=== PATIENT | female | born 1935 | race Caucasian/White ===

== ENCOUNTER 2017-08-02 12:32 | Outpatient (CLI) | END 2017-08-02 12:33 | disposition home or self-care (01) | LOC: RHC-LAB 12:32 | PROVIDERS: ATTEND Otolaryngology | DX: H92.11 Otorrhea, right ear (principal) | CPT/HCPCS: 87070 ==

== ENCOUNTER 2018-01-05 07:10 | Outpatient (CLI) | payer OTHER ==
--- NOTE | 2018-01-05 11:14 | US ---
EXAM: Ultrasound abdomen limited. HISTORY: Elevated liver enzymes. COMPARISON: None available. TECHNIQUE: Abdominal, real time with image documentation: limited (eg, single organ, quadrant, foll ow-up) FINDINGS: The liver demonstrates coarsening of the echotexture pattern with suggestion of slight nod ular surface contour. No focal lesion identified. There is no intrahepatic biliary dilatation. Por monse venous flow is normal in direction. The gallbladder is absent. Common duct measures approximate ly 1.6 cm. Visualized portions of the pancreas are unremarkable. IMPRESSION: 1. Status post cholecystectomy with biliary dilatation. Consider MRCP if there is concern for bilia ry obstruction. 2. Question cirrhosis.
== END 2018-01-05 07:11 | disposition home or self-care (01) ==
LOC: RAD 07:10
PROVIDERS: ATTEND Internal Medicine
DX: R94.5 Abnormal results of liver function studies (principal)

== ENCOUNTER 2018-05-22 18:47 | Outpatient (CLI) | payer OTHER | END 2018-05-22 18:48 | disposition home or self-care (01) | LOC: NONPT 18:47 | PROVIDERS: ATTEND Internal Medicine | DX: E11.65 Type 2 diabetes mellitus with hyperglycemia (principal) | CPT/HCPCS: 80048 ==

== ENCOUNTER 2018-05-30 18:02 | Inpatient (IN) | payer OTHER ==
--- NOTE | 2018-05-30 18:45 | ED.PDOC ---
General Stated Complaint: Reduced /Altered mental status/ Increased difficulty with ambulation. Hx parkinsons disease. Normally up and ambulates with assistance of a walker/now increased diffiulty. states has been drinking adequately. PMHX UTI Time Seen by Physician: 18:15 Mode of Arrival: Ambulance Information Source: Patient, Family, EMT Exam Limitations: No limitations System Inflammatory Response Syndrome: Not Applicable <CHAMP POWELL - Last Filed: 05/30/18 19:14> <CHAMP SALVADOR - Last Filed: 05/30/18 20:45> ED Provider: Dr. CHAMP SALVADOR MD Chief Complaint: Altered Mental Status Primary Care Provider: ABBIE GARCIA Sepsis Protocol: For patient's 13 years and over: Temp is 96.8 and below OR 101 and greater Pulse >90 BPM Resp >20/minute Acutely Altered Mental Status Are patient's symptoms suggestive of a new infection, such as: -Pneumonia -Skin, Soft Tissue -Endocarditis -UTI -Bone, Joint Infection -Implantable Device -Acute Abdominal Infection -Wound Infection -Meningitis -Blood Stream Catheter Infection -Unknown Neurological Complaint Exam - Weakness Complaint/Exam Onset: Gradual Symptoms Are: Still present Timing: Intermittent Episodes Lasting: Minutes Initial Severity: Mild Current Severity: Moderate Character: Reports: Weak Aggravating: Reports: Exertion Alleviating: Reports: Rest Associated Signs and Symptoms: Reports: Unsteady gait. Denies: Nausea, Vomiting , Diaphoresis, Tinnitus, Chest pain, Short of air, Palpitations, GI blood loss, Visual changes, Decreased oral intake, Change in medication, Change in diet, OTC meds, Loss of balance Related History: Similar episode Cardiac Risk Factors: Reports: Hypertension, Diabetes, Elevated lipids CVA Risk Factors: Reports: Diabetes, Hypertension Related Surgical History: Reports: None JVD Present: No Carotid Bruit Present: No Nystagmus Present: No Gag Reflex Present: Yes Meningeal Signs Positive: No Focal Weakness: Present: None Focal Sensory Loss: Present: None Gait: Unsteady (at home), Unable [id number]: Normal Findings Babinski Sign: Negative Right, Negative Left Differential Diagnoses: Other (UTI, Parkinsons) <CHAMP POWELL - Last Filed: 05/30/18 19:14> Review of Systems - Review Of Systems Constitutional: Reports: Weakness Eyes: Reports: No symptoms Ears, Nose, Mouth, Throat: Reports: No symptoms Respiratory: Reports: No symptoms Cardiac: Reports: No symptoms GI: Reports: No symptoms : Reports: Incontinence Musculoskeletal: Reports: No symptoms Skin: Reports: No symptoms Neurological: Reports: Cognitive dysfunction (mild) Endocrine: Reports: No symptoms Hematologic/Lymphatic: Reports: No symptoms All Other Systems: Reviewed and Negative <CHAMP POWELL - Last Filed: 05/30/18 19:14> - Review Of Systems Constitutional: Reports: No symptoms Eyes: Reports: No symptoms Respiratory: Reports: No symptoms Cardiac: Reports: Irregular heart rate GI: Reports: No symptoms Musculoskeletal: Reports: No symptoms Skin: Reports: No symptoms <CHAMP SALVADOR - Last Filed: 05/30/18 20:45> Past Medical History - Past Medical History Endocrine: Reports: DM 2, Hypothyroid, Dyslipidemia Cardiovascular: Reports: Hypertension Gastrointestinal: Reports: GERD Genitourinary: Reports: UTI, Urosepsis Neuro/Psych: Reports: TIA, Anxiety, Depression, Dementia, Parkinson's Musculoskeletal: Reports: Arthritis, Joint Pain Cancer: Reports: None Last Menstrual Period: unknown - Social History Smoking Status: Never smoker Hx Substance Use: No Alcohol Screening: None <CHAMP POWELL - Last Filed: 05/30/18 19:14> Physical Exam - Physical Exam Appearance: Ill-appearing, Obese Ill-appearing: Mild Pain Distress: None Eyes: JIE, EOMI, Conjunctiva clear ENT: Ears normal, Nose normal, Oropharynx normal Neck: Supple Respiratory: Airway patent, Breath sounds clear, Breath sounds equal, Respirations nonlabored Cardiovascular: RRR, Pulses normal, No rub, No murmur GI/: Soft, Nontender, No masses, Bowel sounds normal, No Organomegaly Musculoskeletal: Normal strength, ROM intact, No edema, No calf tenderness Skin: Warm Neurological: Sensation intact, Motor intact, Reflexes intact, Cranial nerves intact, Alert, Oriented Psychiatric: Affect appropriate, Mood appropriate <CHAMP POWELL - Last Filed: 05/30/18 19:14> Physician Notification - Case Discussed Physician Notified: Dr Salvador- physician Time of Notification: 19:05 (accepts patient) <CHAMP POWELL - Last Filed: 05/30/18 19:14> Course - Course Hematology/Chemistry: 05/30/18 19:00 <CHAMP POWELL - Last Filed: 05/30/18 19:14> - Course Hematology/Chemistry: 05/30/18 19:00 05/30/18 19:00 <CHAMP SALVADOR - Last Filed: 05/30/18 20:45> - Course Orders, Labs, Meds: Lab Review 05/30/18 05/30/18 05/30/18 18:50 18:50 19:00 WBC 5.27 RBC 4.28 Hgb 12.9 Hct 38.4 MCV 89.7 MCH 30.1 MCHC 33.6 RDW Coeff of Woody 12.0 Plt Count 195 Immature Gran % (Auto) 0.2 Neut % (Auto) 82.9 Lymph % (Auto) 8.7 L [place] % (Auto) 7.6 Eos % (Auto) 0.2 Baso % (Auto) 0.4 Immature Gran # (Auto) 0.0 Neut # (Auto) 4.4 Lymph # (Auto) 0.5 L [place] # (Auto) 0.4 Eos # (Auto) 0.0 Baso # (Auto) 0.0 Sodium Potassium Chloride Carbon Dioxide Anion Gap BUN Creatinine Estimated GFR (MDRD) BUN/Creatinine Ratio Glucose Lactic Acid Calcium Magnesium Total Bilirubin AST ALT Alkaline Phosphatase Troponin I < 0.012 Total Protein Albumin Globulin Albumin/Globulin Ratio Procalcitonin < 0.05 Urine Color Urine Clarity Urine pH Ur Specific [place] Urine Protein Urine Glucose (UA) Urine Ketones Urine Blood Urine Nitrite Urine Bilirubin Urine Urobilinogen Ur Leukocyte Esterase Urine Microscopic WBC Ur Squamous Epith Cells Ur Transition Epith Cell Urine Bacteria 05/30/18 05/30/18 05/30/18 19:00 19:00 19:30 WBC RBC Hgb Hct MCV MCH MCHC RDW Coeff of Woody Plt Count Immature Gran % (Auto) Neut % (Auto) Lymph % (Auto) [place] % (Auto) Eos % (Auto) Baso % (Auto) Immature Gran # (Auto) Neut # (Auto) Lymph # (Auto) [place] # (Auto) Eos # (Auto) Baso # (Auto) Sodium 136.8 Potassium 4.33 Chloride 92.3 L Carbon Dioxide 26.1 Anion Gap 22.73 BUN 16.9 Creatinine 0.61 Estimated GFR (MDRD) 94.00 BUN/Creatinine Ratio 27.70 Glucose 101.7 Lactic Acid 2.55 H Calcium 8.37 L Magnesium 1.19 L Total Bilirubin 1.42 H AST 11.1 L ALT 7.5 Alkaline Phosphatase 59.0 Troponin I Total Protein 6.99 Albumin 4.17 Globulin 2.82 Albumin/Globulin Ratio 1.47 Procalcitonin Urine Color Yellow Urine Clarity Clear Urine pH 5.5 Ur Specific [place] 1.025 Urine Protein 2+ Urine Glucose (UA) Negative Urine Ketones 2+ Urine Blood Negative Urine Nitrite Positive Urine Bilirubin Negative Urine Urobilinogen 1.0 Ur Leukocyte Esterase Negative Urine Microscopic WBC 0-2 Ur Squamous Epith Cells 0-2 Ur Transition Epith Cell 2-5 Urine Bacteria 3+ Orders Category Date Time Status EKG-(ED ONLY) Stat CARDIO 05/30/18 18:10 Completed Straight [ED CATHETER INSERTION AND CARE] .ONCE EMERGENCY 05/30/18 19:23 Active BLOOD CULTURE (ED ONLY) Stat LAB 05/30/18 19:00 Received CBC W/ AUTO DIFF Stat LAB 05/30/18 19:00 Completed CMP [COMPREHENSIVE METABOLIC PANEL] Stat LAB 05/30/18 19:00 Completed LACTIC ACID Stat LAB 05/30/18 19:00 Completed MAGNESIUM Stat LAB 05/30/18 19:00 Completed PROCALCITONIN Stat LAB 05/30/18 18:50 Completed TROPONIN I Stat LAB 05/30/18 18:50 Completed UA [URINALYSIS C & S IF INDICATED] Stat LAB 05/30/18 19:30 Completed URINE CULTURE Stat LAB 05/30/18 19:56 Received Ceftriaxone Sodium [Rocephin] MEDS 05/30/18 20:21 Discontinued 1 gm IM ONCE STA Lidocaine HCl [Uro-Jet] MEDS 05/30/18 19:23 Discontinued 10 ml [id number] ONCE STA Lidocaine HCl/Pf [Lidocaine HCl 1% Sdv] MEDS 05/30/18 20:21 Discontinued 2.1 ml IM ONCE STA CHEST, 1V AP ONLY Stat RADS 05/30/18 18:[address] HEAD W/O CONTRAST Stat RADS 05/30/18 18:43 Completed Medications Discontinued Medications Generic Name Dose Route Start Last Admin Trade Name Freq PRN Reason Stop Dose Admin Ceftriaxone Sodium 1 gm 05/30/18 20:21 Rocephin IM 05/30/18 20:22 ONCE STA Lidocaine HCl 10 ml 05/30/18 19:23 05/30/18 19:44 Uro-Jet MUCOUSMEMB 05/30/18 19:24 10 ml ONCE STA Administration Lidocaine HCl 2.1 ml 05/30/18 20:21 Lidocaine Hcl 1% Sdv IM 05/30/18 20:22 ONCE STA Vital Signs: Temp Pulse Resp BP Pulse Ox 05/30/18 18:03 97.7 F 68 18 129/56 L 99 Departure <CHAMP POWELL - Last Filed: 05/30/18 19:14> - Departure Time of Disposition: 20:45 Disposition Discussed With: Patient, Family (admitted) <CHAMP SALVADOR - Last Filed: 05/30/18 20:45> - Departure Disposition: HOME SELF-CARE Discharge Problem: Altered mental status, Parkinsons disease, Urinary tract infection after immobility Instructions: Urinary Tract Infection in Women (ED) Allergies/Adverse Reactions: Allergies codeine Allergy (Unverified 12/21/16 09:23) naproxen [From Naprosyn] Allergy (Unverified 12/21/16 09:23) Penicillins Adverse Reaction (Verified 05/30/18 18:15) Home Medications: Ambulatory Orders Atorvastatin Calcium 40 mg PO BEDTIME 11/04/15 Calcium Carb/Vitamin D3/Vit K1 [Calcium + Vit D & K Chew Tab] 1 each PO DAILY Furosemide 20 mg PO DAILY 11/04/15 Levothyroxine Sodium 112 mcg PO DAILY 11/04/15 Metformin HCl 500 mg PO QID 11/04/15 Aspirin [Aspir 81] 81 mg PO DAILY tab-cap 01/11/17 Carbidopa/Levodopa [Carbidopa-Levo 25-100 Mg Odt] 2 each PO TID 04/06/17 Benazepril HCl 20 mg PO BEDTIME 05/30/18 Benazepril HCl [Lotensin] 40 mg PO DAILY 05/30/18 Buspirone HCl 10 mg PO TID 05/30/18 Clonidine HCl [Catapres] 0.1 mg PO BID PRN 05/30/18 Donepezil HCl [Aricept] 10 mg PO BEDTIME 05/30/18 Escitalopram Oxalate [Lexapro] 10 mg PO DAILY 05/30/18 Famotidine [Pepcid] 20 mg PO BEDTIME 05/30/18 Hydrocodone Bit/Acetaminophen [[place] 5-325] 1 each PO Q6HR PRN 05/30/18 Potassium Chloride [K-Dur] 20 meq PO DAILY 05/30/18 Risperidone [Risperdal] 0.25 mg PO BID 05/30/18
[2018-05-30] MEDS ORDERED: URO-JET MUCOUSMEMB STA (19:23)
--- NOTE | 2018-05-30 19:36 | CT ---
EXAM: CT brain without contrast HISTORY: Altered mental status TECHNIQUE: CT of the brain without intravenous contrast FINDINGS: There is no acute hemorrhage midline shift or mass effect. No hydrocephalus or abnormal e xtra-axial fluid collection. Generalized involutional atrophy, moderate. Chronic microvascular rahman ges of the white matter tracts, severe. No acute large vessel territorial infarct is seen. The bony cranium appears normal. The visualized paranasal sinuses are clear. Soft tissues without significan t abnormality. IMPRESSION: 1. Chronic changes as described. No acute intracranial abnormality is seen.
--- NOTE | 2018-05-30 19:42 | DI ---
EXAM: CHEST FRONTAL VIEW HISTORY: Decreased mental functioning. COMPARISON: None FINDINGS: Prominent heart size. Atherosclerotic disease. Minimal blunting of the left costophrenic angle probably represents a tiny pleural effusion. Chronic lung changes with no obvious consolidate d pneumonia or active congestive heart failure/fluid overload. There is no pneumothorax IMPRESSION: 1. Questionable tiny left pleural effusion. Otherwise lungs are clear.
[2018-05-30] MEDS ORDERED: ROCEPHIN IM STA (20:21)
[2018-05-30] MEDS ORDERED: LIDOCAINE HCL 1% SDV IM STA (20:21)
[2018-05-30] MEDS ORDERED: ROCEPHIN 1 GM in SODIUM CHLORIDE 50 ML IV STA (20:33)
[2018-05-30] MEDS ORDERED: ROCEPHIN ONE (20:37)
[2018-05-30] MEDS ORDERED: SODIUM CHLORIDE 1,000 ML IV STA (20:57)
[2018-05-30] MEDS ORDERED: ATROPINE SULFATE PFS IVP PRN (20:59)
[2018-05-30] MEDS ORDERED: NITROSTAT SL PRN (20:59)
[2018-05-30] MEDS ORDERED: TYLENOL PO PRN (20:59)
[2018-05-30 22:17] VITALS: BMI 23.5
[2018-05-30] MEDS ORDERED: NORCO 5-325 PO PRN (23:20)
[2018-05-30] MEDS ORDERED: NON-FORMULARY MEDICATION (Atorvastatin Calcium [Atorvastatin Calcium] 40 MG) PO SCH (23:22)
[2018-05-30] MEDS ORDERED: NON-FORMULARY MEDICATION (Benazepril Hcl [Benazepril Hcl] 20 MG) PO SCH (23:22)
[2018-05-30] MEDS ORDERED: RISPERDAL PO SCH (23:30)
[2018-05-30] MEDS ORDERED: LIPITOR ONE (23:32)
[2018-05-30] MEDS ORDERED: LOTENSIN ONE (23:33)
[2018-05-30] MEDS: PEPCID PO SCH (23:36)
[2018-05-30] MEDS: BUSPAR PO SCH (23:37)
[2018-05-30] MEDS: ARICEPT PO SCH (23:37)
[2018-05-30] MEDS: CATAPRES PO PRN (23:37)
[2018-05-31] MEDS ORDERED: SODIUM CHLORIDE 1,000 ML IV SCH (05:30)
[2018-05-31] MEDS ORDERED: SYNTHROID ONE (05:53)
[2018-05-31] MEDS: LASIX TAB PO SCH (05:56)
[2018-05-31] MEDS: CATAPRES PO PRN (05:56)
[2018-05-31] MEDS ORDERED: LEVOTHYROXINE SODIUM 112 MCG PO SCH (06:30)
--- NOTE | 2018-05-31 08:27 | PCM.PROG ---
Attending Provider: ATTENDING PROVIDER: Dr. CAROL CARBONE DATE OF SERVICE: 05/31/18 SUBJECTIVE: This 83 year old WHITE/ F was hospitalized 05/30/18 with syncope type of episode, dehydration and evidence of UTI by abnormal U/A. The patient is being treated with Rocephin. We will continue IV fluids. No evidence of fluid overload. The patient's systolic blood pressure is 182. REVIEW OF SYSTEMS: CONSTITUTIONAL: No night sweats. No fatigue, malaise, lethargy. No fever or chills. HEENT: Eyes: No visual changes. No eye pain. No eye discharge. ENT: No runny nose. No epistaxis. No sinus pain. No odynophagia. No congestion. RESPIRATORY: No cough, no congestion. No hemoptysis. No shortness of breath. CARDIOVASCULAR: No angina symptoms. No CHF symptoms. No atypical chest pain for CAD. No palpitations. No orthopnea.. GASTROINTESTINAL: No abdominal pain. No nausea or vomiting. No diarrhea or constipation. No hematemesis. No hematochezia. GENITOURINARY: No urgency. No frequency. No dysuria. No hematuria. No obstructive symptoms. No discharge. No pain. No significant abnormal bleeding. MUSCULOSKELETAL: No musculoskeletal pain; no joint swelling. NEUROLOGICAL: Awake, alert, oriented to time, place and person. No headache. No neck pain. No syncope. No seizures. No dizziness. PSYCHIATRIC: Not anxious. No depression. No suicidal thoughts. No homicidal thoughts. SKIN: No rash. No lesions. No wounds. ENDOCRINE: No unexplained weight loss. No weight gain. HEMATOLOGIC/LYMPHATIC: No anemia. No purpura. No petechiae. No prolonged or excessive bleeding. No palpable lymph nodes. PHYSICAL EXAMINATION: GENERAL: The patient is awake, alert and oriented, lying in bed in no distress. VITAL SIGNS: Temperature 97.8 F, Pulse 62, Respiratory Rate 16, BP 156/70, Pulse Ox 100% HEENT: Head normocephalic, atraumatic. Eyes: Extraocular muscles are intact. Pupils are equal, round and reactive to light and accommodation. Ears: No lesions. Nose appeared normal. Throat: No exudate or erythema. NECK: Supple. No JVD, no carotid bruit. No lymphadenopathy or thyromegaly. LUNGS: Clear to auscultation. Percussion note normal. Chest symmetrical. HEART: S1, S2, no S3. No murmurs. No cyanosis or clubbing. No ascites. Pulses: Dorsalis pedis and posterior tibial pulses +1 to +2 both sides. ABDOMEN: Soft. Non-tender. Bowel sounds active. No CVA tenderness. No mass felt. EXTREMITIES: No edema. Full range of motion of all extremities, equal. NEUROLOGIC: No focal deficit. Cranial nerves II through XII are grossly intact. No headache, no double vision or headache. SKIN: Warm and dry. Intact. Turgor-normal. LYMPHATIC: No palpable lymph nodes/no lymphedema. MUSCULOSKELETAL: Normal joints with no swelling. Muscle tone is normal. LAB REVIEW: 05/31/18 03:00 05/31/18 03:00 05/31/18 03:00: WBC 4.67, RBC 3.72 L, Hgb 11.1 L, Hct 33.1 L, MCV 89.0, MCH 29.8 , MCHC 33.5, RDW Coeff of Woody 12.1, Plt Count 173, Immature Gran % (Auto) 0.2, Neut % (Auto) 74.1, Lymph % (Auto) 14.8, [place] % (Auto) 9.9, Eos % (Auto) 0.4, Baso % (Auto) 0.6, Immature Gran # (Auto) 0.0, Neut # (Auto) 3.5, Lymph # (Auto ) 0.7, [place] # (Auto) 0.5, Eos # (Auto) 0.0, Baso # (Auto) 0.0 05/31/18 03:00: Sodium 136.1, Potassium 4.02, Chloride 95.7 L, Carbon Dioxide 28.6, Anion Gap 15.82, BUN 19.2 H, Creatinine 0.62, Estimated GFR (MDRD) 92.00, BUN/Creatinine Ratio 30.96, Glucose 100.0, Calcium 8.00 L, Total Bilirubin 0.96 , AST 12.3 L, ALT 4.9, Alkaline Phosphatase 45.8 L, Total Creatine Kinase < 20.0 L, Troponin I < 0.012, Total Protein 6.09 L, Albumin 3.28 L, Globulin 2.81 , Albumin/Globulin Ratio 1.16 05/30/18 19:30: Urine Color Yellow, Urine Clarity Clear, Urine pH 5.5, Ur Specific [place] 1.025, Urine Protein 2+, Urine Glucose (UA) Negative, Urine Ketones 2+, Urine Blood Negative, Urine Nitrite Positive, Urine Bilirubin Negative, Urine Urobilinogen 1.0, Ur Leukocyte Esterase Negative, Urine Microscopic WBC 0-2, Ur Squamous Epith Cells 0-2, Ur Transition Epith Cell 2-5, Urine Bacteria 3+ 05/30/18 19:00: Lactic Acid 2.55 H 05/30/18 19:00: Sodium 136.8, Potassium 4.33, Chloride 92.3 L, Carbon Dioxide 26.1, Anion Gap 22.73, BUN 16.9, Creatinine 0.61, Estimated GFR (MDRD) 94.00, BUN/Creatinine Ratio 27.70, Glucose 101.7, Calcium 8.37 L, Magnesium 1.19 L, Total Bilirubin 1.42 H, AST 11.1 L, ALT 7.5, Alkaline Phosphatase 59.0, Total Protein 6.99, Albumin 4.17, Globulin 2.82, Albumin/Globulin Ratio 1.47 05/30/18 19:00: WBC 5.27, RBC 4.28, Hgb 12.9, Hct 38.4, MCV 89.7, MCH 30.1, MCHC 33.6, RDW Coeff of Woody 12.0, Plt Count 195, Immature Gran % (Auto) 0.2, Neut % (Auto) 82.9, Lymph % (Auto) 8.7 L, [place] % (Auto) 7.6, Eos % (Auto) 0.2, Baso % (Auto) 0.4, Immature Gran # (Auto) 0.0, Neut # (Auto) 4.4, Lymph # (Auto ) 0.5 L, [place] # (Auto) 0.4, Eos # (Auto) 0.0, Baso # (Auto) 0.0 05/30/18 18:50: Troponin I < 0.012 05/30/18 18:50: Procalcitonin < 0.05 ASSESSMENT: Please see below. 1. UTI being treated with Rocephin, no fever or chills 2. Near syncope episode by history, will monitor telemetry and get Carotid scan 3. Bilateral Endarterectomy PLAN: 1. Discontinue Benazepril 2. Losartan 50mg twice a day 3. Norvasc 5mg at night 4. Continue Clonidine 5. Continue rest of medications. 6. T4 TSH 7. Lipid profile 8. Parkinson's dementia, find out her neurologist and continue same treatment. 9. Continue IV fluids. Plan and coordination of the patient's care discussed in the presence of Crew Team Member and nurse. SCRIBED BY: SUGEY RANDALL Rehab Manager scribed while in presence of service performed by Dr. CAROL CARBONE on 05/31/18 ([id number])
[2018-05-31] MEDS ORDERED: NON-FORMULARY MEDICATION (Potassium Chloride [K-Dur] 20 MEQ) PO SCH (09:00)
[2018-05-31] MEDS ORDERED: NON-FORMULARY MEDICATION (Benazepril Hcl [Lotensin] 40 MG) PO SCH (09:00)
[2018-05-31] MEDS ORDERED: LEVODOPA PO SCH (09:00)
[2018-05-31] MEDS ORDERED: PLAVIX PO SCH (09:00)
[2018-05-31] MEDS ORDERED: CARBIDOPA PO SCH (09:00)
[2018-05-31] MEDS: ROCEPHIN 1 GM in SODIUM CHLORIDE 50 ML IV SCH (09:37)
[2018-05-31] MEDS: LEXAPRO PO SCH (09:38)
[2018-05-31] MEDS: ASPIRIN EC PO SCH (09:38)
[2018-05-31] MEDS: K-DUR PO SCH (09:38)
[2018-05-31] MEDS: GLUCOPHAGE PO SCH ×2 (09:39→17:06)
[2018-05-31] MEDS: CALCIUM 500 + VIT D 200 MG TABLET PO SCH (09:39)
[2018-05-31] MEDS: COZAAR PO SCH ×2 (09:41→21:17)
[2018-05-31] MEDS: BUSPAR PO SCH ×3 (09:41→21:17)
[2018-05-31] MEDS: SINEMET 25-100 PO SCH ×3 (09:42→21:16)
--- NOTE | 2018-05-31 11:18 | RS.PTINEVL ---
Subjective - Patient information Date of Evaluation: 05/31/18 Date of Arrival on Unit: 05/30/18 Admitted From:: Home Diagnosis: syncope, UTI, dehydration Usual Living Arrangement: With Spouse Living Arrangement Comments: lives with spouse, dtrs are supportive. Home Environment: House, Stairs (few) Medical History: Hypertension, Dementia, Diabetes, Arthritis Medical History Comments:: CAD, parkinson's disease, GERD, depression, anxiety Surgical History: Knee Replacement (Bilateral), Cholecystectomy, Hysterectomy Surgical History Comments:: femur fx s/p repair, Medications: see chart Subjective Information/ Patient Comments:: pt states that she can't do much on her own. - Level of function Prior to this admission, the patient could do the following:: Partially Dependent Ambulation Abilities prior to this admission: Family assists with ADL's Current Level of Function: Partially Dependent Current Equipment Used at Home: rolling walker, shower chair, wheelchair, canes , BSC Interventions - Objective Patient Orientation: Person Current Interventions: IV's, Oxygen, Telemetry Observation: pt very [place], has 1 hearing aide. Range of Motion - ROM Right Upper Extremity AROM: WFL's Left Upper Extremity AROM: WFL's Right Lower Extremity AROM: WFL's Left Lower Extremity AROM: WFL's Muscle Strength - Muscle Strength Right Upper Extremity Strength: Mild Weakness (grossly 3/5) Left Upper Extremity Strength: Mild Weakness (grossly 3/5) Right Lower Extremity Strength: Mild Weakness (hip flex 3+/5, knee flex/ext 3+/5 , ankle DF/PF 4-/5) Left Lower Extremity Strength: Mild Weakness (hip flex 3+/5, knee flex/ext 3+/5 , ankle DF/PF 4-/5) Sensation - Sensation Right Upper Extremity Sensation: Intact/Normal Left Upper Extremity Sensation: Intact/Normal Right Lower Extremity Sensation: Intact/Normal Left Lower Extremity Sensation: Intact/Normal Palpation Palpation Findings: None/Normal Balance - Sitting Balance and Reactions Static Sitting Balance: Fair Dynamic Sitting Balance: Poor Sitting Equilibrium Reactions: Delayed Left, Delayed Right Sitting Protective Reactions: Delayed Left, Delayed Right - Standing Balance and Reactions Static Standing Balance: Poor Dynamic Standing Balance: Poor Standing Equilibrium Reactions: Delayed Left, Delayed Right Standing Protective Reactions: Delayed Left, Delayed Right Functional Mobility - Bed Mobility Rolling R/L: Mod Assist Supine to Sit: Mod Assist - Transfers Sit to Stand: Min Assist, 2 person assist Stand to Sit: Min Assist, 2 person assist - Safety Awareness Safety Awareness: Poor GUILLERMO INDEX SCORE: n/a Ambulation - Ambulation Assistive Device Used: Rolling Walker Orthotic/Prosthetic Device: No Distance: 10ft Assistance needed with Ambulation: Min Assist, 2 person assist Gait Deviations: Wide Based gait, Forward posture, Short stride, Deviates from path Treatment time - Time with patient Length of Evaluation: 24 Total treatment time: 26 Patient Education - Education Patient Education: Home Exercise Program, Education of Plan of Care Teaching Methods: Discussion, Demonstration Comments: discussion regarding POC as well as safety with transfers and gait. Assessment - Assessment Problem List:: Decreased level of function, Requires training/education, Decreased safety/Risk of falls, Weakness, Cognitive status limits abilities Rehab Potential: Good Further Therapy Indicated?: Yes Candidate for Swing Bed for Therapy Services?: Feel pt may not be a candidate for swing bed due to cognitive deficits. Evaluation Complexity: HISTORY: Medium (dementia, parkinsons, OA, dementia, age) , EXAM OF BODY SYSTEMS: Medium (strength, balance, gait, transfers, cognitive deficits), CLINICAL PRESENTATION: Medium (evolving), CLINICAL DECISION MAKING: Medium Short Term Goals GOAL #1: pt demonstrate rolling and bridging with min x 1 Goal to be met by: 06/02/18 GOAL #2: pt transfer sup to/from sit min x 1 Goal to be met by: 06/02/18 GOAL #3: pt transfer sit to/from stand min x 1 Goal to be met by: 06/02/18 GOAL #4: pt amb with rwx 50ft with min x 1. Goal to be met by: 06/02/18 Brick Tosser Goals GOAL #1: pt transfer sup to/from sit to/from stand CGa Goal to be met by: 06/05/18 GOAL #2: pt amb with rwx functional household distances with CGA Goal to be met by: 06/05/18 GOAL #3: pt demonstrate improved dyn stand balance fair. Goal to be met by: 06/05/18 Plan Plan of Care: Therapeutic EX, Therapeutic Activity Other:: gait training Frequency of Treatment: 1-2 X day, as tolerated Duration of Treatment: 5-6 days Anticipated Discharge Destination: Home (home vs LTC) Treatment Diagnosis (ICD 10 Codes): R26.2 difficulty walking. R 26.81 balance impaired. M 62.81 muscle weakness Has the Physician been added for Co-signature?: Yes
[2018-05-31] MEDS: RISPERDAL PO SCH ×2 (11:56→21:16)
[2018-05-31] MEDS: SODIUM CHLORIDE 1,000 ML IV SCH (13:40)
--- NOTE | 2018-05-31 13:52 | US ---
EXAM: Bilateral carotid artery Doppler History: Syncopal episodes, visual impairment and headaches. Technique: Multiple sonographic images through the bilateral internal carotid arteries were obtained . Color duplex Doppler was used to interrogate vascular flow. Findings: The right ICA peak systolic velocity is within normal limits measuring 90 cm/sec. The right ICA/cca PSV ratio is normal at 1.7. The right vertebral artery is patent and demonstrates antegrade flow. G ray scale images demonstrate mild to moderate plaque buildup within the right internal carotid artery . The left ICA peak systolic velocity is within normal limits measuring 81 cm/sec. The left ICA/cca PS V ratio is normal at 1.3. The left vertebral artery is patent and demonstrates antegrade flow. Mari scale images demonstrate mild to moderate plaque buildup within the left internal carotid artery. Impression: No significant hemodynamic stenosis of the bilateral internal carotid arteries
--- NOTE | 2018-05-31 14:21 | RS.OTINEVL ---
Subjective - Patient information Date of Evaluation: 05/31/18 Date of Arrival on Unit: 05/30/18 Usual Living Arrangement: With Spouse Living Arrangement Comments: Reported she lives at [facility]. Medical History: Hypertension, Dementia, Vascular Disease Medical History Comments:: Pt has dementia, Parkinson's Disease, Carotid surgery , endocrine disorder, retinal surgery, cardiac disorders, hysterectomy, femur fracture, UTI, hypercholesterolemia, vascular surgery, right inner ear rebuilt, cataract removed Surgical History: Hysterectomy Surgical History Comments:: hysterectomy, vascular surgery, retinal surgery, B TKA, R inner ear rebuilt, Cholecystectomy, caratorid surgery. cataracts removed Subjective Information/ Patient Comments:: "Not very well." When asked if she could feed herself, she reported that her usually feeds her. - Level of function Prior to this admission, the patient could do the following:: Partially Dependent Ambulation Abilities prior to this admission: Pt is able to ambulate with a rolling walker. Pt is Dougie to complete sit to stand. Pt has help with self feeding. Pt requires assistance with all ADLS due to delay in processing and BUE weakness. Current Level of Function: Partially Dependent Current Equipment Used at Home: rolling walker, shower chair, wheelchair, canes , BSC Pain Assessment - Pain Pain Score: 0 Interventions - Objective Patient Orientation: Person, Situation Current Interventions: IV's, Oxygen, Telemetry, Paige Catheter Observation: Pt is weak and requires extra time with processing. Pt tries very hard to complete her walking with a RW and walks in very short steps. Interventions - ROM Right Upper Extremity AROM: Slight limitation Left Upper Extremity AROM: Slight limitation - Strength Right Upper Extremity Strength: Mild Weakness Left Upper Extremity Strength: Mild Weakness - Sensation Right Upper Extremity Sensation: Intact/Normal Left Upper Extremity Sensation: Intact/Normal Balance - Sitting Balance Static Sitting Balance: Fair Dynamic Sitting Balance: Fair - Standing Balance Static Standing Balance: Poor Dynamic Standing Balance: Poor ADL Skills - Self Feeding Self Feeding: Min Assist - Grooming Grooming: Min Assist - Bathing Bathing UE: Min Assist Bathing LE: Max Assist - Dressing Dressing UE: Min Assist Dressing LE: Max Assist - Toilet Management Toileting Management: Max Assist Functional Mobility - Bed Mobility Rolling R/L: CGA Scooting: Min Assist Supine to Sit: Min Assist Sit to Supine: Min Assist - Transfers Sit to Stand: Min Assist Stand to Sit: Min Assist Stand Pivot Transfers: Min Assist - Safety Awareness Safety Awareness: Fair GUILLERMO INDEX SCORE: . Additional Treatment Performed - Time with patient Length of Evaluation: 25 Total treatment time: 32 Activities Do you enjoy playing games?: No Would you be interested in leaving your room for activities?: No Would you enjoy group activities?: Yes Do you have difficulty with your vision?: Yes Patient Interests:: Watching Television, Visiting/Socializing Patient Education Patient Education: Education of diagnosis, Home Exercise Program, Home Safety, Education of Plan of Care Teaching Recipient: Patient Teaching Methods: Discussion Assessment Problem List:: Decreased level of function, Requires training/education, Decreased safety/Risk of falls, Weakness Rehab Potential: Good Further Therapy Indicated?: Yes Evaluation Complexity: HISTORY: Medium, EXAM OF BODY SYSTEMS: Medium, CLINICAL DECISION MAKING: Medium Short Term Goals - Goals GOAL 1: Pt to increase (I) of self cares to CGA. Goal to be met by: 06/06/18 GOAL 2: Pt to increase toilet management to Min A. Goal to be met by: 06/06/18 GOAL 3: Pt to increase I of self feeding to CGA. Goal to be met by: 06/06/18 Medical Office Assistant Goals GOAL 1: Pt to increase (I) of self cares to Sup. Goal to be met by: 06/09/18 GOAL 2: Pt to increase toilet management to CGA. Goal to be met by: 06/09/18 GOAL 3: Pt to increase I of self feeding to Sup. Goal to be met by: 06/09/18 Plan Plan of Care: Therapeutic EX, Neuromuscular Re-Educ, Therapeutic Activity, Self- Care/Home Management Frequency of Treatment: 1-2 X day, as tolerated Duration of Treatment: 1 Week Anticipated Discharge Destination: [facility] Treatment Diagnosis (ICD 10 Codes): M62.81 Muscle weakness, Z74.1 Need for assistance with personal care. Has the Physician been added for Co-signature?: Yes
[2018-05-31] MEDS ORDERED: LOTENSIN PO SCH (21:00)
[2018-05-31] MEDS: LIPITOR PO SCH (21:16)
[2018-05-31] MEDS: ARICEPT PO SCH (21:16)
[2018-05-31] MEDS: PEPCID PO SCH (21:17)
[2018-05-31] MEDS: NORVASC PO SCH (21:17)
[2018-06-01] MEDS: SODIUM CHLORIDE 1,000 ML IV SCH ×2 (02:57→16:45)
[2018-06-01] MEDS: LASIX TAB PO SCH (05:42)
[2018-06-01] MEDS ORDERED: SYNTHROID PO SCH (06:30)
[2018-06-01] MEDS: SINEMET 25-100 PO SCH ×3 (08:22→21:53)
[2018-06-01] MEDS: MINOXIDIL PO SCH (08:22)
[2018-06-01] MEDS: RISPERDAL PO SCH ×2 (08:22→21:54)
[2018-06-01] MEDS: BUSPAR PO SCH ×3 (08:23→21:53)
[2018-06-01] MEDS: COZAAR PO SCH ×2 (08:23→21:53)
[2018-06-01] MEDS: ASPIRIN EC PO SCH (08:23)
[2018-06-01] MEDS: K-DUR PO SCH (08:23)
[2018-06-01] MEDS: ROCEPHIN 1 GM in SODIUM CHLORIDE 50 ML IV SCH (08:23)
[2018-06-01] MEDS: CALCIUM 500 + VIT D 200 MG TABLET PO SCH (08:23)
[2018-06-01] MEDS: GLUCOPHAGE PO SCH ×2 (08:23→16:42)
[2018-06-01] MEDS: LEXAPRO PO SCH (08:23)
--- NOTE | 2018-06-01 10:28 | PCM.PROG ---
Attending Provider: ATTENDING PROVIDER: Dr. CAROL CARBONE DATE OF SERVICE: 06/01/18 SUBJECTIVE: This 83 year old WHITE/ F was hospitalized 05/30/18 with near syncopal episode. Carotid scan was normal. Telemetry shows sinus rhythm. Jamila HAMLIN was in the room. Plavix was discussed and the family doesn't want the patient on the medication reason being because of fall risk is high and been falling at home. The patient is on aspirin. Skin turgor is better. Systolic blood pressure is over 150. REVIEW OF SYSTEMS: CONSTITUTIONAL: No night sweats. No fatigue, malaise, lethargy. No fever or chills. HEENT: Eyes: No visual changes. No eye pain. No eye discharge. ENT: No runny nose. No epistaxis. No sinus pain. No odynophagia. No congestion. RESPIRATORY: No cough, no congestion. No hemoptysis. No shortness of breath. CARDIOVASCULAR: No angina symptoms. No CHF symptoms. No atypical chest pain for CAD. No palpitations. No orthopnea.. GASTROINTESTINAL: No abdominal pain. No nausea or vomiting. No diarrhea or constipation. No hematemesis. No hematochezia. Appetite is improving. GENITOURINARY: No urgency. No frequency. No dysuria. No hematuria. No obstructive symptoms. No discharge. No pain. No significant abnormal bleeding. MUSCULOSKELETAL: No musculoskeletal pain; no joint swelling. NEUROLOGICAL: Awake, alert, oriented to time, place and person. No headache. No neck pain. No syncope. No seizures. No dizziness. PSYCHIATRIC: Not anxious. No depression. No suicidal thoughts. No homicidal thoughts. SKIN: No rash. No lesions. No wounds. ENDOCRINE: No unexplained weight loss. No weight gain. HEMATOLOGIC/LYMPHATIC: No anemia. No purpura. No petechiae. No prolonged or excessive bleeding. No palpable lymph nodes. PHYSICAL EXAMINATION: GENERAL: The patient is awake, alert and oriented, sitting in the chair in no distress. VITAL SIGNS: Temperature 97.6 F, Pulse 72, Respiratory Rate 20, BP 187/75, Pulse Ox 98% HEENT: Head normocephalic, atraumatic. Eyes: Extraocular muscles are intact. Pupils are equal, round and reactive to light and accommodation. Ears: No lesions. Nose appeared normal. Throat: No exudate or erythema. NECK: Supple. No JVD, no carotid bruit. No lymphadenopathy or thyromegaly. LUNGS: Clear to auscultation. Percussion note normal. Chest symmetrical. HEART: S1, S2, no S3. No murmurs. No cyanosis or clubbing. No ascites. Pulses: Dorsalis pedis and posterior tibial pulses +1 to +2 both sides. ABDOMEN: Soft. Non-tender. Bowel sounds active. No CVA tenderness. No mass felt. EXTREMITIES: No edema. Full range of motion of all extremities, equal. NEUROLOGIC: No focal deficit. Cranial nerves II through XII are grossly intact. No headache, no double vision or headache. SKIN: Warm and dry. Intact. Turgor-normal. LYMPHATIC: No palpable lymph nodes/no lymphedema. MUSCULOSKELETAL: Normal joints with no swelling. Muscle tone is normal. LAB REVIEW: 05/31/18 03:00 05/31/18 03:00 05/31/18 10:51: Total Creatine Kinase < 20.0 L, Troponin I < 0.012 05/31/18 08:20: Free T4 3.33 H 05/31/18 08:20: Triglycerides 136.9, Cholesterol 74.4, LDL Cholesterol, Calc 10 , VLDL Cholesterol 27, HDL Cholesterol 36.7, Cholesterol/HDL Ratio 2.0 L, TSH 0.317 L ASSESSMENT: Please see below. 1. Parkinson's Dementia 2. Hard of hearing PLAN: 1. Medications were changed. Will be adding Minoxidil 5mg PO this morning and QAM. 2. Family considering [facility] placement. CONDITION: Stable Plan and coordination of the patient's care discussed in the presence of Airline Pilot/First Officer and nurse. SCRIBED BY: Johnny GOMEZ scribed while in presence of service performed by Dr. CAROL CARBONE on 06/01/18 ([id number])
--- NOTE | 2018-06-01 12:52 | PN ---
DATE OF SERVICE: 05/30/18 SUBJECTIVE: 83 year old white female hospitalized through the emergency room with symptoms of UTI and dehydration. She also had near syncopal episode. The patient's eyes rolled up. The patient no new neurological deficit. She has a history of status post carotid endarterectomy. The patient is going to be hospitalized with IV fluids and IV antibiotics, Telemetry. Routine telemetry orders which would including serial EKGs and cardiac markers. Neurologist status will be monitored. The patient is DNR. TIME SPENT: More than 30 minutes. Plan and coordination of the patient's care discussed in the presence of nurse. HARSHIL
[2018-06-01] MEDS: LIPITOR PO SCH (21:53)
[2018-06-01] MEDS: ARICEPT PO SCH (21:53)
[2018-06-01] MEDS: PEPCID PO SCH (21:54)
[2018-06-01] MEDS: NORVASC PO SCH (22:00)
[2018-06-02] MEDS: CATAPRES PO PRN (02:05)
[2018-06-02] MEDS: SODIUM CHLORIDE 1,000 ML IV SCH ×2 (05:23→20:34)
[2018-06-02] MEDS: SYNTHROID PO SCH (05:35)
[2018-06-02] MEDS: LASIX TAB PO SCH (05:35)
[2018-06-02] MEDS ORDERED: SYNTHROID PO SCH (06:30)
[2018-06-02] MEDS ORDERED: CITRATE OF MAGNESIA PO STA (08:25)
--- NOTE | 2018-06-02 08:45 | PCM.PROG ---
Attending Provider: ATTENDING PROVIDER: Dr. CAROL CARBONE This patient is seen with Sandra Pierce, Nurse Practitioner. DATE OF SERVICE: 06/02/18 SUBJECTIVE: This 83 year old WHITE/ F was hospitalized 05/30/18. The patient is resting comfortably. She is sounding slightly congested this morning. We will get a chest x-ray. We are going to start NEB treatments. No bowel movement for several days. The patient is still very weak and not eating much. REVIEW OF SYSTEMS: CONSTITUTIONAL: No night sweats. No fatigue, malaise, lethargy. No fever or chills. HEENT: Eyes: No visual changes. No eye pain. No eye discharge. ENT: No runny nose. No epistaxis. No sinus pain. No odynophagia. No congestion. RESPIRATORY: Cough, no congestion. No hemoptysis. No shortness of breath. CARDIOVASCULAR: No angina symptoms. No CHF symptoms. No atypical chest pain for CAD. No palpitations. No orthopnea.. GASTROINTESTINAL: No abdominal pain. No nausea or vomiting. No diarrhea or constipation. No hematemesis. No hematochezia. GENITOURINARY: No urgency. No frequency. No dysuria. No hematuria. No obstructive symptoms. No discharge. No pain. No significant abnormal bleeding. MUSCULOSKELETAL: No musculoskeletal pain; no joint swelling. Weak NEUROLOGICAL: Awake, alert, oriented to time, place and person. No headache. No neck pain. No syncope. No seizures. No dizziness. PSYCHIATRIC: Not anxious. No depression. No suicidal thoughts. No homicidal thoughts. SKIN: No rash. No lesions. No wounds. ENDOCRINE: No unexplained weight loss. No weight gain. HEMATOLOGIC/LYMPHATIC: No anemia. No purpura. No petechiae. No prolonged or excessive bleeding. No palpable lymph nodes. PHYSICAL EXAMINATION: GENERAL: The patient is awake, alert not oriented, lying in bed in no distress. VITAL SIGNS: Temperature 98.5 F, Pulse 73, Respiratory Rate 17, BP 117/68, Pulse Ox 98% HEENT: Head normocephalic, atraumatic. Eyes: Extraocular muscles are intact. Pupils are equal, round and reactive to light and accommodation. Ears: No lesions. Nose appeared normal. Throat: No exudate or erythema. NECK: Supple. No JVD, no carotid bruit. No lymphadenopathy or thyromegaly. LUNGS: Diminished breath sounds. Clear to auscultation. Percussion note normal. Chest symmetrical. HEART: S1, S2, no S3. No murmurs. No cyanosis or clubbing. No ascites. Pulses: Dorsalis pedis and posterior tibial pulses +1 to +2 both sides. ABDOMEN: Soft. Non-tender. Bowel sounds active. No CVA tenderness. No mass felt. EXTREMITIES: No edema. Full range of motion of all extremities, equal. NEUROLOGIC: No focal deficit. Cranial nerves II through XII are grossly intact. No headache, no double vision or headache. SKIN: Not dry. Intact. Turgor-normal. LYMPHATIC: No palpable lymph nodes/no lymphedema. MUSCULOSKELETAL: Normal joints with no swelling. Muscle tone is normal. LAB REVIEW: 06/02/18 05:15 06/02/18 05:15 06/02/18 05:15: Sodium 138.8, Potassium 3.58, Chloride 100.0, Carbon Dioxide 30.5 H, Anion Gap 11.88, BUN 16.5, Creatinine 0.54 L, Estimated GFR (MDRD) 108.00, BUN/Creatinine Ratio 30.55, Glucose 156.5 H, Calcium 7.97 L, Total Bilirubin 0.53, AST 14.4, ALT 8.4, Alkaline Phosphatase 59.3, Total Protein 5.86 L, Albumin 3.02 L, Globulin 2.84, Albumin/Globulin Ratio 1.06 06/02/18 05:15: WBC 3.69 L, RBC 3.45 L, Hgb 10.2 L, Hct 30.9 L, MCV 89.6, MCH 29.6, MCHC 33.0, RDW Coeff of Woody 12.2, Plt Count 150, Immature Gran % (Auto) 0.3, Neut % (Auto) 69.1, Lymph % (Auto) 20.3, [place] % (Auto) 8.4, Eos % (Auto) 1.4, Baso % (Auto) 0.5, Immature Gran # (Auto) 0.0, Neut # (Auto) 2.6, Lymph # ( Auto) 0.8, [place] # (Auto) 0.3 L, Eos # (Auto) 0.1, Baso # (Auto) 0.0 06/01/18 07:40: Sodium 138.1, Potassium 3.56, Chloride 95.5 L, Carbon Dioxide 34.0 H, Anion Gap 12.16, BUN 13.5, Creatinine 0.55 L, Estimated GFR (MDRD) 106.00, BUN/Creatinine Ratio 24.54, Glucose 154.7 H, Calcium 8.45, Total Bilirubin 0.85, AST 17.9, ALT 6.7, Alkaline Phosphatase 67.7, Total Protein 6.80 , Albumin 3.71, Globulin 3.09, Albumin/Globulin Ratio 1.20 ASSESSMENT: Please see below. 1. UTI, Rocephin appropriate. PLAN: 1. Half bottle of Magnesium Citrate. 2. Start Xopenex NEB twice a day 3. Chest x-ray Plan and coordination of the patient's care discussed in the presence of Ground Layer and nurse. SCRIBED BY: Johnny GOMEZ scribed while in presence of service performed by Dr. Carbone/Sandra Pierce APRN on 06/02/18 ([id number])
[2018-06-02] MEDS: RISPERDAL PO SCH ×2 (09:40→20:36)
[2018-06-02] MEDS: ROCEPHIN 1 GM in SODIUM CHLORIDE 50 ML IV SCH (09:40)
[2018-06-02] MEDS: COZAAR PO SCH ×2 (09:40→20:35)
[2018-06-02] MEDS: ASPIRIN EC PO SCH (09:41)
[2018-06-02] MEDS: SINEMET 25-100 PO SCH ×3 (09:41→20:36)
[2018-06-02] MEDS: GLUCOPHAGE PO SCH ×2 (09:41→16:44)
[2018-06-02] MEDS: CALCIUM 500 + VIT D 200 MG TABLET PO SCH (09:41)
[2018-06-02] MEDS: LEXAPRO PO SCH (09:41)
[2018-06-02] MEDS: BUSPAR PO SCH ×3 (09:41→20:36)
[2018-06-02] MEDS: K-DUR PO SCH (09:41)
[2018-06-02] MEDS: MINOXIDIL PO SCH (09:41)
--- NOTE | 2018-06-02 11:57 | DI ---
Exam: Single view of the chest. Comparison: 05/30/2018. Reason for exam: Chest congestion. FINDINGS: There is similar appearing blunting of the left costophrenic angle. The cardiac silhouett e remains mildly prominent in size. No pneumothorax or new consolidation. Impression: Similar appearing blunting of the left costophrenic angle not significantly changed from previous exa m.
[2018-06-02] MEDS: XOPENEX 1.25 MG NEB SCH (16:52)
[2018-06-02] MEDS: ARICEPT PO SCH (20:36)
[2018-06-02] MEDS: NORVASC PO SCH (20:36)
[2018-06-02] MEDS: PEPCID PO SCH (20:36)
[2018-06-02] MEDS: LIPITOR PO SCH (20:36)
[2018-06-03] MEDS: XOPENEX 1.25 MG NEB SCH ×2 (05:10→17:05)
[2018-06-03] MEDS: LASIX TAB PO SCH (05:43)
[2018-06-03] MEDS: SYNTHROID PO SCH (05:43)
[2018-06-03] MEDS: CALCIUM 500 + VIT D 200 MG TABLET PO SCH (08:58)
[2018-06-03] MEDS: RISPERDAL PO SCH ×2 (08:58→20:33)
[2018-06-03] MEDS: K-DUR PO SCH (08:58)
[2018-06-03] MEDS: MINOXIDIL PO SCH (08:58)
[2018-06-03] MEDS: BUSPAR PO SCH ×3 (08:59→20:33)
[2018-06-03] MEDS: SINEMET 25-100 PO SCH ×3 (08:59→20:33)
[2018-06-03] MEDS: GLUCOPHAGE PO SCH ×2 (08:59→17:36)
[2018-06-03] MEDS: LEXAPRO PO SCH (08:59)
[2018-06-03] MEDS: ASPIRIN EC PO SCH (08:59)
[2018-06-03] MEDS: COZAAR PO SCH ×2 (08:59→20:33)
[2018-06-03] MEDS: SODIUM CHLORIDE 1,000 ML IV SCH ×2 (09:00→21:31)
[2018-06-03] MEDS ORDERED: CITRATE OF MAGNESIA PO STA (09:45)
[2018-06-03] MEDS ORDERED: HUMULIN R ONE ×3 (12:31→20:11)
[2018-06-03] MEDS: HUMULIN R SUBCUT PRN ×3 (12:35→20:35)
[2018-06-03] MEDS: PEPCID PO SCH (20:33)
[2018-06-03] MEDS: LIPITOR PO SCH (20:34)
[2018-06-03] MEDS: NORVASC PO SCH (20:34)
[2018-06-03] MEDS: ARICEPT PO SCH (20:34)
[2018-06-04] MEDS: XOPENEX 1.25 MG NEB SCH ×2 (05:05→16:47)
[2018-06-04] MEDS: LASIX TAB PO SCH (05:40)
[2018-06-04] MEDS: SYNTHROID PO SCH (05:40)
[2018-06-04] MEDS ORDERED: MILK OF MAGNESIA PO STA (07:16)
[2018-06-04] MEDS: ROCEPHIN 1 GM in SODIUM CHLORIDE 50 ML IV SCH (08:30)
[2018-06-04] MEDS: RISPERDAL PO SCH ×2 (08:31→20:20)
[2018-06-04] MEDS: MINOXIDIL PO SCH (08:31)
[2018-06-04] MEDS: SINEMET 25-100 PO SCH ×3 (08:32→20:21)
[2018-06-04] MEDS: GLUCOPHAGE PO SCH ×2 (08:32→17:05)
[2018-06-04] MEDS: K-DUR PO SCH (08:32)
[2018-06-04] MEDS: ASPIRIN EC PO SCH (08:32)
[2018-06-04] MEDS: LEXAPRO PO SCH (08:32)
[2018-06-04] MEDS: CALCIUM 500 + VIT D 200 MG TABLET PO SCH (08:32)
[2018-06-04] MEDS: BUSPAR PO SCH ×3 (08:32→20:20)
[2018-06-04] MEDS: COZAAR PO SCH ×2 (08:33→20:20)
[2018-06-04] MEDS: CALMOSEPTINE OINTMENT TP SCH ×4 (10:28→20:22)
[2018-06-04] MEDS: HUMULIN R SUBCUT PRN ×3 (11:21→20:23)
[2018-06-04] MEDS: SODIUM CHLORIDE 1,000 ML IV SCH ×2 (11:31→23:48)
[2018-06-04] MEDS: ARICEPT PO SCH (20:20)
[2018-06-04] MEDS: PEPCID PO SCH (20:20)
[2018-06-04] MEDS: NORVASC PO SCH (20:21)
[2018-06-04] MEDS: LIPITOR PO SCH (20:21)
[2018-06-05] MEDS: XOPENEX 1.25 MG NEB SCH (04:56)
[2018-06-05] MEDS: LASIX TAB PO SCH (05:47)
[2018-06-05] MEDS: SYNTHROID PO SCH (05:47)
[2018-06-05] MEDS: HUMULIN R SUBCUT PRN ×2 (06:07→11:25)
--- NOTE | 2018-06-05 08:00 | PN ---
DATE OF SERVICE: 06/02/18 SUBJECTIVE: The patient was seen and examined with Nurse Practitioner. The patient was admitted with UTI, dehydration, syncopal episode. The patient's condition has improved. The patient is afebrile. The patient steadily has improved. Hydration status has improved. Cardiovascular status stable. TIME SPENT: More than 30 minutes. Plan and coordination of the patient's care discussed in the presence of nurse. HARSHIL
[2018-06-05] MEDS ORDERED: KAYEXALATE SUSP PO STA (08:15)
[2018-06-05] MEDS: ROCEPHIN 1 GM in SODIUM CHLORIDE 50 ML IV SCH (08:49)
[2018-06-05] MEDS: MINOXIDIL PO SCH (08:50)
[2018-06-05] MEDS: LEXAPRO PO SCH (08:50)
[2018-06-05] MEDS: GLUCOPHAGE PO SCH (08:50)
[2018-06-05] MEDS: COZAAR PO SCH (08:50)
[2018-06-05] MEDS: SINEMET 25-100 PO SCH ×2 (08:50→14:29)
[2018-06-05] MEDS: RISPERDAL PO SCH (08:50)
[2018-06-05] MEDS: ASPIRIN EC PO SCH (08:51)
[2018-06-05] MEDS: CALCIUM 500 + VIT D 200 MG TABLET PO SCH (08:51)
[2018-06-05] MEDS: BUSPAR PO SCH ×2 (08:51→14:29)
[2018-06-05] MEDS: CALMOSEPTINE OINTMENT TP SCH ×2 (08:52→13:32)
[2018-06-05] MEDS: K-DUR PO SCH (08:58)
--- NOTE | 2018-06-05 09:29 | PCM.PROG ---
Attending Provider: ATTENDING PROVIDER: Dr. CAROL CARBONE This patient is seen with Sandra Pierce, Nurse Practitioner. DATE OF SERVICE: 06/05/18 SUBJECTIVE: This 83 year old WHITE/ F was hospitalized 05/30/18. She is lying in bed resting comfortably. Dr. Carbone is doing an echocardiogram today. She has been eating well. No fever. Anticipate assisted placement after discharge. REVIEW OF SYSTEMS: CONSTITUTIONAL: Weakness. No night sweats. No malaise, lethargy. No fever or chills. HEENT: Eyes: No visual changes. No eye pain. No eye discharge. ENT: No runny nose. No epistaxis. No sinus pain. No odynophagia. No congestion. RESPIRATORY: No cough, no congestion. No hemoptysis. No shortness of breath. CARDIOVASCULAR: No angina symptoms. No CHF symptoms. No atypical chest pain for CAD. No palpitations. No orthopnea.. GASTROINTESTINAL: No abdominal pain. No nausea or vomiting. No diarrhea or constipation. No hematemesis. No hematochezia. GENITOURINARY: No urgency. No frequency. No dysuria. No hematuria. No obstructive symptoms. No discharge. No pain. No significant abnormal bleeding. MUSCULOSKELETAL: No musculoskeletal pain; no joint swelling. NEUROLOGICAL: Confusion. No headache. No neck pain. No syncope. No seizures. No dizziness. PSYCHIATRIC: Not anxious. No depression. No suicidal thoughts. No homicidal thoughts. SKIN: No rash. No lesions. No wounds. ENDOCRINE: No unexplained weight loss. No weight gain. HEMATOLOGIC/LYMPHATIC: No anemia. No purpura. No petechiae. No prolonged or excessive bleeding. No palpable lymph nodes. PHYSICAL EXAMINATION: GENERAL: The patient is awake, alert, oriented to person lying in bed in no distress. VITAL SIGNS: Temperature 97.1 F, Pulse 80, Respiratory Rate 18, BP 146/86, Pulse Ox 100% HEENT: Head normocephalic, atraumatic. Eyes: Extraocular muscles are intact. Pupils are equal, round and reactive to light and accommodation. Ears: No lesions. Nose appeared normal. Throat: No exudate or erythema. NECK: Supple. No JVD, no carotid bruit. No lymphadenopathy or thyromegaly. LUNGS: Diminished breath sounds. Clear to auscultation. Percussion note normal. Chest symmetrical. HEART: Extra heart sounds. S1, S2, no S3. No murmurs. No cyanosis or clubbing. No ascites. Pulses: Dorsalis pedis and posterior tibial pulses +1 to +2 both sides. ABDOMEN: Soft. Non-tender. Bowel sounds active. No CVA tenderness. No mass felt. EXTREMITIES: No edema. Full range of motion of all extremities, equal. NEUROLOGIC: No focal deficit. Cranial nerves II through XII are grossly intact. No headache, no double vision or headache. SKIN: Not dry. Intact. Turgor-normal. LYMPHATIC: No palpable lymph nodes/no lymphedema. MUSCULOSKELETAL: Normal joints with no swelling. Muscle tone is normal. LAB REVIEW: 06/05/18 05:15 06/05/18 05:15 06/05/18 05:15: Sodium 141.2, Potassium 5.31 H, Chloride 103.7, Carbon Dioxide 33.7 H, Anion Gap 9.11, BUN 23.7 H, Creatinine 0.56 L, Estimated GFR (MDRD) 104.00, BUN/Creatinine Ratio 42.32, Glucose 186.2 H, Calcium 8.93, Total Bilirubin 0.37, AST 11.6 L, ALT 7.4, Alkaline Phosphatase 86.7, Total Protein 5.77 L, Albumin 2.85 L, Globulin 2.92, Albumin/Globulin Ratio 0.97 06/05/18 05:15: WBC 4.45 L, RBC 3.37 L, Hgb 10.0 L, Hct 31.5 L, MCV 93.5, MCH 29.7, MCHC 31.7 L, RDW Coeff of Woody 12.6, Plt Count 145, Immature Gran % (Auto) 0.4, Neut % (Auto) 66.0, Lymph % (Auto) 20.2, [place] % (Auto) 9.4, Eos % (Auto) 3.6, Baso % (Auto) 0.4, Immature Gran # (Auto) 0.0, Neut # (Auto) 2.9, Lymph # ( Auto) 0.9, [place]ley # (Auto) 0.4, Eos # (Auto) 0.2, Baso # (Auto) 0.0 ASSESSMENT: 1. UTI, positive 2. Dehydration improved 3. Dementia 4. Hyperkalemia PLAN: 1. Echocardiogram today 2. Kayexalate 25 mcg. 3. Hold potassium supplement Plan and coordination of the patient's care discussed in the presence of Machine Cleaner and nurse. CONDITION: Stable SCRIBED BY: Mary Kate WONGist scribed while in presence of service performed by Dr. Carbone/Sandra Pierce APRN on 06/05/18 ([id number])
--- NOTE | 2018-06-05 10:51 | PN ---
DATE OF SERVICE: 06/03/18 SUBJECTIVE: The patient was seen and examined. The patient's condition is improving. She is sitting up alert but confused. The patient was hospitalized with near syncopal episode, UTI, Dehydration. The patient is afebrile and the appetite has improved. REVIEW OF SYSTEMS: CONSTITUTIONAL: No night sweats. No fatigue, malaise, lethargy. No fever or chills. HEENT: Eyes: No visual changes. No eye pain. No eye discharge. ENT: No runny nose. No epistaxis. No sinus pain. No sore throat. No odynophagia. No congestion. RESPIRATORY: No cough, no congestion. No hemoptysis. No shortness of breath. CARDIOVASCULAR: No angina symptoms. No CHF symptoms. No atypical chest pain for CAD. No palpitations. No PND. No orthopnea. GASTROINTESTINAL: No abdominal pain. No nausea or vomiting. No diarrhea or constipation. No hematemesis. No hematochezia. GENITOURINARY: No urgency. No frequency. No dysuria. No hematuria. No obstructive symptoms. No discharge. No pain. No significant abnormal bleeding. MUSCULOSKELETAL: No musculoskeletal pain; no joint swelling. NEUROLOGICAL: No headache. No neck pain. No syncope. No seizures. No dizziness. PSYCHIATRIC: Not anxious. No depression. No suicidal thoughts. No homicidal thoughts. SKIN: No rash. No lesions. No wounds. ENDOCRINE: No unexplained weight loss. No weight gain. HEMATOLOGIC/LYMPHATIC: No anemia. No purpura. No petechiae. No prolonged or excessive bleeding. No palpable lymph nodes. PHYSICAL EXAMINATION: VITAL SIGNS: Temperature 97.2, pulse 74, respiratory rate 20, blood pressure 146/68, pulse ox 98%. HEENT: Head normocephalic, atraumatic. Eyes: Extraocular muscles are intact. Pupils are equal, round and reactive to light and accommodation. Ears: No lesions. Nose appeared normal. Throat: No exudate or erythema. NECK: Supple. No JVD, no carotid bruit. No lymphadenopathy or thyromegaly. LUNGS: Decreased breath sounds but clear to auscultation. Percussion note normal. Chest symmetrical. HEART: S1, S2, no S3. No murmurs. No cyanosis or clubbing. No ascites. Pulses: Dorsalis pedis and posterior tibial pulses +1 to +2 bilaterally. ABDOMEN: Soft. Nontender. Bowel sounds active. No CVA tenderness. No mass felt. EXTREMITIES: No edema. Full range of motion of all extremities, equal. NEUROLOGIC: No focal deficit. Cranial nerves II through XII are grossly intact. No headache, no double vision or headache. SKIN: Not dry. Intact. Turgor - normal. LYMPHATIC: No palpable lymph nodes/no lymphedema. MUSCULOSKELETAL: Normal joints with no swelling. Muscle tone is normal. LABS: Hgb 11, hct 33, WBC 4,400 normal differential, creatinine 0.5, BUN 18, potassium 3.9. ASSESSMENT: 1. Near Syncopal episode 2. UTI 3. Dehydration 4. Parkinson's Dementia. PLAN: 1. Continue antibiotics 2. IV fluids 3. She is on Xopenex and Rocephin Continue the same. CONDITION: Stable. TIME SPENT: More than 30 minutes. Plan and coordination of the patient's care discussed in the presence of nurse. HARSHIL
[2018-06-05 14:04] VITALS: BP 158/69; TEMP 98.4
--- NOTE | 2018-06-05 14:52 | CM.DICTOOL ---
ADMISSION: 05/30/18 21:02 DISCHARGE: 06/05/18 DATE OF SERVICE: 06/05/18 FINAL DIAGNOSIS UTI, E.COLI ORGANISM SYNCOPAL EPISODE DEHYDRATION HYPERKALEMIA, RESOLVED CAD DYSLIPIDEMIA HYPERTENSION HYPOTHYROIDISM DIABETES, TYPE 2 ANXIETY ARTHRITIS PARKINSON'S DEMENTIA (DR. VAUGHN-NEXT APPOINTMENT 04/2019 HYSTERECTOMY CHOLECYSTECTOMY, 1949s BACK SURGERY, BILATERAL KNEE ARTHROPLASTY, RIGHT EAR SURGERY (TYMPANOPLASTY???) CATARACT EXTRACTIONS RETINAL SURGERY BILATERAL CAROTID ENDARTERECTOMY, RIGHT, 06/19; LEFT, 09/19 (DR. DRAPER) FEMUR FRACTURE-REPAIR, 10/19 NEVER TOBACCO LAST VITALS Temp Pulse Resp BP Pulse Ox 98.4 F 81 18 158/69 H 100 06/05/18 14:00 06/05/18 14:00 06/05/18 14:00 06/05/18 14:00 06/05/18 14:00 TAKE THESE MEDICATIONS AT THE [facility] Amlodipine Besylate (Norvasc) 5 mg PO BEDTIME [facility] Last Admin: 06/04/18 20:21 Dose: 5 mg Aspirin (Aspirin Ec) 81 mg PO DAILYWM [facility] Last Admin: 06/05/18 08:51 Dose: 81 mg Atorvastatin Calcium (Lipitor) 40 mg PO BEDTIME [facility] Last Admin: 06/04/18 20:21 Dose: 40 mg Buspirone HCl (Buspar) 10 mg PO TID [facility] Last Admin: 06/05/18 08:51 Dose: 10 mg Calcium/Vitamin D (Calcium 500 + Vit D 200 Mg Tablet) 1 each PO DAILY [facility] Last Admin: 06/05/18 08:51 Dose: 1 each Carbidopa/Levodopa (Sinemet 25-100) 2 tab PO TID [facility] Last Admin: 06/05/18 08:50 Dose: 2 tab Cefdinir (Omnicef) 300 mg PO BID x5 DAYS ONLY Clonidine (Catapres) 0.1 mg PO BID PRN PRN Reason: B/P greater than 160/90 Last Admin: 06/02/18 02:05 Dose: 0.1 mg Donepezil HCl (Aricept) 10 mg PO BEDTIME [facility] Last Admin: 06/04/18 20:20 Dose: 10 mg Escitalopram Oxalate (Lexapro) 10 mg PO DAILY [facility] Last Admin: 06/05/18 08:50 Dose: 10 mg Famotidine (Pepcid) 20 mg PO BEDTIME [facility] Last Admin: 06/04/18 20:20 Dose: 20 mg Furosemide (Lasix Tab) 20 mg PO QDAC [facility] Last Admin: 06/05/18 05:47 Dose: 20 mg Hydrocodone Bitart/Acetaminophen ([place] 5-325) 1 tab PO BID PRN (FOURTEEN DAYS ONLY) PRN Reason: Pain Levothyroxine Sodium (Synthroid) 100 mcg PO QDAC [facility] Last Admin: 06/05/18 05:47 Dose: 100 mcg Losartan Potassium (Cozaar) 50 mg PO BID [facility] Last Admin: 06/05/18 08:50 Dose: 50 mg Metformin HCl (Glucophage) 1,000 mg PO BIDWM [facility] Last Admin: 06/05/18 08:50 Dose: 1,000 mg Minoxidil (Minoxidil) 5 mg PO DAILY [facility] Last Admin: 06/05/18 08:50 Dose: 5 mg Potassium Chloride (K-Dur) 10 meq PO DAILYWM [facility], BEGIN 06/07/18 Last Admin: 06/05/18 08:58 Dose: Not Given Risperidone (Risperdal) 0.25 mg PO BID [facility] Last Admin: 06/05/18 08:50 Dose: 0.25 mg ALLERGIES codeine Allergy (Unverified 12/21/16 09:23) naproxen [From Naprosyn] Allergy (Unverified 12/21/16 09:23) Penicillins Adverse Reaction (Verified 05/30/18 18:15) NEW PRESCRIPTIONS: Cefdinir [Omnicef] 300 mg PO BID 5 Days #10 capsule 06/05/18 Hydrocodone/Acetaminophen [[place] 5-325 Tablet] 1 each PO BID PRN 14 Days #28 tablet 06/05/18 Potassium Chloride [K-Tab ER] 10 meq PO DAILYWM #30 tablet.er 06/05/18 SMOKING: NEVER SMOKER DISEASE SPECIFIC EDUCATION: UTI, E.COLI DEHYDRATION SYNCOPE HYPERTENSION MEDICATION CHANGES NEW MEDICATIONS [facility] PLACEMENT, SHORT TERM PHYSICAL THERAPY FOLLOW UP LAB REVIEW: 06/05/18 05:15 06/05/18 13:17 06/05/18 13:17: Potassium 4.42 06/05/18 05:15: Sodium 141.2, Potassium 5.31 H, Chloride 103.7, Carbon Dioxide 33.7 H, Anion Gap 9.11, BUN 23.7 H, Creatinine 0.56 L, Estimated GFR (MDRD) 104.00, BUN/Creatinine Ratio 42.32, Glucose 186.2 H, Calcium 8.93, Total Bilirubin 0.37, AST 11.6 L, ALT 7.4, Alkaline Phosphatase 86.7, Total Protein 5.77 L, Albumin 2.85 L, Globulin 2.92, Albumin/Globulin Ratio 0.97 06/05/18 05:15: WBC 4.45 L, RBC 3.37 L, Hgb 10.0 L, Hct 31.5 L, MCV 93.5, MCH 29.7, MCHC 31.7 L, RDW Coeff of Woody 12.6, Plt Count 145, Immature Gran % (Auto) 0.4, Neut % (Auto) 66.0, Lymph % (Auto) 20.2, Antelope % (Auto) 9.4, Eos % (Auto) 3.6, Baso % (Auto) 0.4, Immature Gran # (Auto) 0.0, Neut # (Auto) 2.9, Lymph # ( Auto) 0.9, Antelope # (Auto) 0.4, Eos # (Auto) 0.2, Baso # (Auto) 0.0 PLAN: DISCHARGE TO [facility] TODAY, 06/05/18 DR. CARBONE/KRISTINA COUCH APRN WILL FOLLOW DURING USUAL [facility] ROUNDS IN APPROX ONE WEEK RESUME HOME MEDICATIONS AT THE [facility] PLEASE NOTE THE REDUCTION IN THE SYNTHROID TO 100 MCG PO QAM PLEASE NOTE THE REDUCTION IN THE METFORMIN TO 1000 MG PO BID PLEASE NOTE THE REDUCTION IN ADMINISTRATION FREQUENCY OF THE NORCO TO BID PRN ( FOR 14 DAYS ONLY) PLEASE DISCONTINUE THE K-DUR 10 MEQ NEW MEDICATIONS ORDERED DURING THE HOSPITAL STAY AMLODIPINE BESYLATE (NORVASC) 5 MG PO AT BEDTIME [place] POTASSIUM (COZAAR) 1000 MG PO BID MINOXIDIL 5 MG PO DAILY K-TAB 10 MEQ PO DAILY, BEGIN 06/07/18 LABS CBC WITH DIFF AND CMP IN ONE WEEK TSH AND FREE T4 IN ONE WEEK V/S DAILY DIET REGULAR WITH NUTRITIONAL SUPPLEMENT RESPIRATORY TECHNICIAN PLEASE CONSULT TO PROVIDE FOR OPTIMAL NUTRITIONAL NEEDS ACTIVITY MAY PARTICIPATE IN [facility] ACTIVITY PROGRAM TOLERATED UP FOR MEALS PT/OT PLEASE EVALUATE FOR SERVICES SUMMARY THE PATIENT IS ALERT AND ORIENTED TO PERSON AND PLACE. SHE CURRENTLY RESIDES AT HOME WITH HER SPOUSE. SHE AND HER FAMILY DESIRE FOR HER TO BE ADMITTED TO [facility] FOR SHORT TERM REHAB SO THAT SHE MAY BE ABLE TO RETURN HOME AFTER STRENGTHENING AND GAIT TRAINING. PRIOR TO THIS ADMISSION SHE WAS DEPENDENT ON OTHERS FOR ASSISTANCE WITH ADL'S. SHE WAS ABLE TO AMBULATE FOR SHORT DISTANCES WITH USE OF HER WALKER AND ASSIST FROM HER SON. HE ASSISTS WITH HER HYGIENIC NEEDS, MEDICATION ADMINISTRATION. SHE HAS A CANE , ROLLING WALKER, SHOWER CHAIR, GLUCOSE TESTING METER AND TESTING SUPPLIES, BEDSIDE COMMODE. SHE WAS USING [facility] PRIOR TO THIS ADMISSION. THE SKIN TURGOR IS FAIR. MS. BURNETT HAS NO DECUBITUS ULCERS PRESENT ON DISCHARGE. SHE HAS A PALE PINK AREA TO THE LEFT INNER HEEL THAT IS NOT OPEN. HER HYDRATION AND NUTRITIONAL STATUS HAVE IMPROVED SINCE ADMISSION. SHE IS AWARE AND AGREEABLE FOR DISCHARGE PLANS TODAY. CURRENT CODE STATUS DO NOT RESUSCITATE KRISTINA COUCH APRN CAROL CARBONE M.D.
--- NOTE | 2018-06-06 08:24 | PN ---
DATE OF SERVICE: 06/04/18 SUBJECTIVE: The patient was seen and examined today. The patient's is present in the room. The patient seems to be oriented to person and place. The patient is afebrile. The patient's condition has improved with improved hydration status. REVIEW OF SYSTEMS: CONSTITUTIONAL: No night sweats. No fatigue, malaise, lethargy. No fever or chills. HEENT: Eyes: No visual changes. No eye pain. No eye discharge. ENT: No runny nose. No epistaxis. No sinus pain. No sore throat. No odynophagia. No congestion. RESPIRATORY: No cough, no congestion. No hemoptysis. No shortness of breath. CARDIOVASCULAR: No angina symptoms. No CHF symptoms. No atypical chest pain for CAD. No palpitations. No PND. No orthopnea. GASTROINTESTINAL: No abdominal pain. No nausea or vomiting. No diarrhea or constipation. No hematemesis. No hematochezia. GENITOURINARY: No urgency. No frequency. No dysuria. No hematuria. No obstructive symptoms. No discharge. No pain. No significant abnormal bleeding. MUSCULOSKELETAL: No musculoskeletal pain; no joint swelling. NEUROLOGICAL: No headache. No neck pain. No syncope. No seizures. No dizziness. PSYCHIATRIC: Not anxious. No depression. No suicidal thoughts. No homicidal thoughts. SKIN: No rash. No lesions. No wounds. ENDOCRINE: No unexplained weight loss. No weight gain. HEMATOLOGIC/LYMPHATIC: No anemia. No purpura. No petechiae. No prolonged or excessive bleeding. No palpable lymph nodes. PHYSICAL EXAMINATION: HEENT: Head normocephalic, atraumatic. Eyes: Extraocular muscles are intact. Pupils are equal, round and reactive to light and accommodation. Ears: No lesions. Nose appeared normal. Throat: No exudate or erythema. NECK: Supple. No JVD, no carotid bruit. No lymphadenopathy or thyromegaly. LUNGS: Clear to auscultation. Percussion note normal. Chest symmetrical. HEART: S1, S2, no S3. No murmurs. No cyanosis or clubbing. No ascites. Pulses: Dorsalis pedis and posterior tibial pulses +1 to +2 bilaterally. ABDOMEN: Soft. Nontender. Bowel sounds active. No CVA tenderness. No mass felt. EXTREMITIES: No edema. Full range of motion of all extremities, equal. NEUROLOGIC: No focal deficit. Cranial nerves II through XII are grossly intact. No headache, no double vision or headache. SKIN: Not dry. Intact. Turgor - normal. LYMPHATIC: No palpable lymph nodes/no lymphedema. MUSCULOSKELETAL: Normal joints with no swelling. Muscle tone is normal. ASSESSMENT: 1. UTI seems to have resolved 2. Mental status has improved 3. Hydration status has improved 4. Parkinson's Dementia PLAN: 1. Continue antibiotics. 2. NEBS treatments The was very thankful for me to take care of his and take her as my patient. CONDITION: Stable. TIME SPENT: More than 30 minutes. Plan and coordination of the patient's care discussed in the presence of nurse. HARSHIL
--- NOTE | 2018-06-06 10:33 | DS ---
DATE OF SERVICE: 06/05/18 FINAL DIAGNOSIS: UTI, E.COLI ORGANISM SYNCOPAL EPISODE DEHYDRATION HYPERKALEMIA, RESOLVED CAD DYSLIPIDEMIA HYPERTENSION HYPOTHYROIDISM DIABETES, TYPE 2 ANXIETY ARTHRITIS PARKINSON'S DEMENTIA (DR. VAUGHN-NEXT APPOINTMENT 04/2019 HYSTERECTOMY CHOLECYSTECTOMY, 1950s BACK SURGERY, BILATERAL KNEE ARTHROPLASTY, RIGHT EAR SURGERY (TYMPANOPLASTY???) CATARACT EXTRACTIONS RETINAL SURGERY BILATERAL CAROTID ENDARTERECTOMY, RIGHT, 06/19; LEFT, 09/19 (DR. DRAPER) FEMUR FRACTURE-REPAIR, 10/19 NEVER TOBACCO LAST VITALS: Temp Pulse Resp BP Pulse Ox 98.4 F 81 18 158/69 H 100 06/05/18 14:00 06/05/18 14:00 06/05/18 14:00 06/05/18 14:00 06/05/18 14:00 DISCHARGE INSTRUCTIONS: DISCHARGE TO [facility] TODAY, 06/05/18. DR. CARBONE/ KRISTINA COUCH APRN WILL FOLLOW DURING USUAL CARE HOME ROUNDS IN APPROX ONE WEEK. RESUME HOME MEDICATIONS AT THE CARE HOME. PLEASE NOTE THE REDUCTION IN THE SYNTHROID TO 100 MCG PO QAM, PLEASE NOTE THE REDUCTION IN THE METFORMIN TO 1000 MG PO BID, PLEASE NOTE THE REDUCTION IN ADMINISTRATION FREQUENCY OF THE NORCO TO BID PRN (FOR 14 DAYS ONLY) and PLEASE DISCONTINUE THE K-DUR 10 MEQ. LABS: CBC WITH DIFF AND CMP IN ONE WEEK, TSH AND FREE T4 IN ONE WEEK. V/S DAILY TAKE THESE MEDICATIONS AT THE CARE HOME: Amlodipine Besylate (Norvasc) 5 mg PO BEDTIME [facility] Aspirin (Aspirin Ec) 81 mg PO DAILYWM [facility] Atorvastatin Calcium (Lipitor) 40 mg PO BEDTIME [facility] Buspirone HCl (Buspar) 10 mg PO TID [facility] Calcium/Vitamin D (Calcium 500 + Vit D 200 Mg Tablet) 1 each PO DAILY [facility] Carbidopa/Levodopa (Sinemet 25-100) 2 tab PO TID [facility] Cefdinir (Omnicef) 300 mg PO BID x5 DAYS ONLY Clonidine (Catapres) 0.1 mg PO BID PRN Donepezil HCl (Aricept) 10 mg PO BEDTIME [facility] Escitalopram Oxalate (Lexapro) 10 mg PO DAILY [facility] Famotidine (Pepcid) 20 mg PO BEDTIME [facility] Furosemide (Lasix Tab) 20 mg PO QDAC [facility] Hydrocodone Bitart/Acetaminophen ([place] 5-325) 1 tab PO BID PRN (FOURTEEN DAYS ONLY) Levothyroxine Sodium (Synthroid) 100 mcg PO QDAC [facility] Losartan Potassium (Cozaar) 50 mg PO BID [facility] Metformin HCl (Glucophage) 1,000 mg PO BIDWM [facility] Minoxidil (Minoxidil) 5 mg PO DAILY [facility] Potassium Chloride (K-Dur) 10 meq PO DAILYWM [facility], BEGIN 06/07/18 Risperidone (Risperdal) 0.25 mg PO BID [facility] ALLERGIES: codeine Allergy (Unverified 12/21/16 09:23) naproxen [From Naprosyn] Allergy (Unverified 12/21/16 09:23) Penicillins Adverse Reaction (Verified 05/30/18 18:15) NEW PRESCRIPTIONS: Cefdinir [Omnicef] 300 mg PO BID 5 Days #10 capsule 06/05/18 Hydrocodone/Acetaminophen [[place] 5-325 Tablet] 1 each PO BID PRN 14 Days #28 tablet 06/05/18 Potassium Chloride [K-Tab ER] 10 meq PO DAILYWM #30 tablet.er 06/05/18 SMOKING: NEVER SMOKER DISEASE SPECIFIC EDUCATION: UTI, E.COLI DEHYDRATION SYNCOPE HYPERTENSION MEDICATION CHANGES NEW MEDICATIONS CARE HOME PLACEMENT, SHORT TERM PHYSICAL THERAPY FOLLOW UP DIET: REGULAR WITH NUTRITIONAL SUPPLEMENT DOCUMENT REVIEW SPECIALIST PLEASE CONSULT TO PROVIDE FOR OPTIMAL NUTRITIONAL NEEDS ACTIVITY: MAY PARTICIPATE IN CARE HOME ACTIVITY PROGRAM TOLERATED UP FOR MEALS PT/OT PLEASE EVALUATE FOR SERVICES HOSPITAL COURSE: This is an 83 year old white female who actual primary care provider is in [place] and we take care of her . She presented to the emergency room after having a syncopal episode at home. She was found to be dehydrated and had an elevated Potassium, urine was abnormal. Culture ended up growing e-coli that was sensitive to Rocephin which we put her on. She did have a low grade fever. Kidney function was elevated showing dehydration initially. She was admitted and placed on normal saline at 100cc an hour. After the first 24 hours we decreased this to 75cc an hour. Again, she was placed on Rocephin 1gram IV daily. All of her home medications were continued. She did experience an elevated Potassium today. She had been on 20meq daily. Today this morning it was 5.3 after 25gram of Kayexalate is was down to 4.1. We will decrease her Potassium supplement to 10meq daily. She is not to restart this until Tuesday as she is on Lasix. Due to kidney function we reduced her Metformin to 1,000 PO twice a day. Het T4 and TSH was abnormal. We decreased her Synthroid from 112mcg to 100mcg daily. We placed her on Norvasc 5mg at bedtime as well as Cozaar 100mg daily and Minoxidil 5mg daily. He is going to be discharged to the longterm. The family did not wish to do any swing bed. She had previously been in [facility] after a fall and had gone home. They wish to place her back in [facility] for physical and occupational therapy. She is going to have a CBC and CMP in a week. She is to continue Omnicef 300mg twice a day for the next 5 days with CBC and CMP and T4 and TSH in one week. I will followup with her in the longterm. TIME SPENT: More than 60 minutes. HARSHIL
== END 2018-06-05 16:33 | DRG 690 ==
LOC: ED 18:02 → MEDSURG B 21:02
PROVIDERS: ADMIT Internal Medicine; ATTEND Internal Medicine
DX: N39.0 Urinary tract infection, site not specified (principal); R55 Syncope and collapse; R26.81 Unsteadiness on feet; R53.1 Weakness; G20 Parkinson's disease; E86.0 Dehydration; E87.5 Hyperkalemia; E78.5 Hyperlipidemia, unspecified; E03.9 Hypothyroidism, unspecified; E11.9 Type 2 diabetes mellitus without complications; I25.10 Atherosclerotic heart disease of native coronary artery without angina pectoris; I10 Essential (primary) hypertension; F41.9 Anxiety disorder, unspecified; F02.80 Dementia in other diseases classified elsewhere, unspecified severity, without behavioral disturbance, psychotic disturbance, mood disturbance, and anxiety; M19.90 Unspecified osteoarthritis, unspecified site
CPT/HCPCS: 36415; 80053; 80061; 81001; 82550; 82962; 83605; 83735; 84132; 84145; 84439; 84443; 84484; 85025; 87040; 87086; 87186; 93005; 93010; 94640; 96361; 96365; 97802; 99284; 99285

== ENCOUNTER 2018-07-20 14:58 | Outpatient (CLI) ==
[2018-07-21 13:27] VITALS: BMI 30.2
== END 2018-07-20 15:04 | disposition critical access hospital (66) ==
LOC: AMBL 14:58
PROVIDERS: ATTEND Emergency Medicine
DX: D58.2 Other hemoglobinopathies (principal)

== ENCOUNTER 2018-07-20 15:13 | Emergency (ER) ==
--- NOTE | 2018-07-20 15:30 | ED.PDOC ---
General ED Provider: Dr. MARGI GARCÍA Chief Complaint: Abnormal Labs Stated Complaint: Abnormal labs; also advised by family now that patient has a worsening sore throat Time Seen by Physician: 15:29 Mode of Arrival: Stretcher Information Source: Half-Way, EMT Primary Care Provider: CAROL CARBONE Nursing and Triage Documentation Reviewed and Agree: Yes Does patient meet sepsis criteria?: No System Inflammatory Response Syndrome: Not Applicable Sepsis Protocol: For patient's 13 years and over: Temp is 96.8 and below OR 101 and greater Pulse >90 BPM Resp >20/minute Acutely Altered Mental Status Are patient's symptoms suggestive of a new infection, such as: -Pneumonia -Skin, Soft Tissue -Endocarditis -UTI -Bone, Joint Infection -Implantable Device -Acute Abdominal Infection -Wound Infection -Meningitis -Blood Stream Catheter Infection -Unknown Review of Systems - Review Of Systems Constitutional: Reports: Weakness (apparent but difficult to assess) Respiratory: Reports: No symptoms Cardiac: Reports: No symptoms, Edema (bilateral LEs). Denies: Chest pain Skin: Reports: Dryness All Other Systems: Reviewed and Negative Past Medical History - Past Medical History Previously Healthy: No ([facility] patient;) Endocrine: Reports: DM 2, Hypothyroid, Dyslipidemia Cardiovascular: Reports: Hypertension Respiratory: Reports: None Hematological: Reports: None Gastrointestinal: Reports: GERD Genitourinary: Reports: UTI, Urosepsis Neuro/Psych: Reports: TIA, Anxiety, Depression, Dementia, Parkinson's Musculoskeletal: Reports: Arthritis, Joint Pain Cancer: Reports: None Last Menstrual Period: unknown - Surgical History General Surgical History: Reports: None, Unknown - Family History Family History: Reports: None, Unknown - Social History Smoking Status: Never smoker Hx Substance Use: No Alcohol Screening: None Physical Exam - Physical Exam Appearance: Ill-appearing Ill-appearing: Mild Pain Distress: None Eyes: JIE, EOMI ENT: Oropharynx normal Neck: Supple Respiratory: Airway patent, Breath sounds clear, Breath sounds equal, Respirations nonlabored Cardiovascular: RRR, Pulses normal GI/: Soft (Rectal negative arlene blood) Musculoskeletal: Limited ROM, Limited strength (unable to assist herself much with movements from bed to commode) Skin: Warm, Dry, Pale (Mildly) Neurological: Sensation intact, Motor intact, Oriented (difficult to assess), Alert to verbal Psychiatric: Affect appropriate (as much as can be determined) Physician Notification - Case Discussed Physician Notified: Dr Carbone Time of Notification: 17:05 (Discussed no arlene blood VT and hemicuilt negative) Physician Notified: Dr Carbone Time of Notification: 17:18 (BUN/Creat and CMP discussed; will go back to [facility]) Critical Care Note - Critical Care Note Total Time (mins): 15 Course - Course Hematology/Chemistry: 07/20/18 16:49 Orders, Labs, Meds: Lab Review 07/20/18 07/20/18 07/20/18 16:15 16:49 17:17 Sodium 137.2 Potassium 4.56 Chloride 95.9 L Carbon Dioxide 28.6 Anion Gap 17.26 BUN 16.4 Creatinine 0.72 Estimated GFR (MDRD) 78.00 BUN/Creatinine Ratio 22.77 Glucose 159.8 H Calcium 8.77 Total Bilirubin 0.36 AST 21.2 ALT 11.0 Alkaline Phosphatase 64.6 NT-Pro-B Natriuret Pep 128.000 Total Protein 6.50 Albumin 3.86 Globulin 2.64 Albumin/Globulin Ratio 1.46 Urine Color Yellow Urine Clarity Clear Urine pH 5.0 Ur Specific Bim <=1.005 Urine Protein Negative Urine Glucose (UA) Negative Urine Ketones Negative Urine Blood Negative Urine Nitrite Positive Urine Bilirubin Negative Urine Urobilinogen 0.2 Ur Leukocyte Esterase Trace Urine Microscopic WBC 2-5 Ur Squamous Epith Cells 0-2 Urine Bacteria 2+ Stl Occult Blood (IFOB) Negative Orders Category Date Time Status COMPREHENSIVE METABOLIC PANEL Stat LAB 07/20/18 16:49 Completed FLU A & B MOLECULAR [FLU A/B MOLECULAR] Stat LAB 07/20/18 17:46 Ordered HEMOCCULT [OCCULT BLOOD, STOOL] Stat LAB 07/20/18 16:15 Completed NT-PROBNP Stat LAB 07/20/18 16:49 Completed RAPID STREP SCREEN [MOLECULAR GROUP A STREP] Stat LAB 07/20/18 17:45 Ordered URINALYSIS C & S IF INDICATED Stat LAB 07/20/18 17:17 Completed URINE CULTURE Stat LAB 07/20/18 17:17 Received Vital Signs: Temp Pulse Resp BP Pulse Ox 07/20/18 15:14 97.7 F 77 20 126/57 L 99 Departure - Departure Time of Disposition: 17:36 Disposition: HOME SELF-CARE Discharge Problem: Anemia Qualifiers: Anemia type: unspecified type Qualified Code(s): D64.9 - Anemia, unspecified Instructions: Anemia (ED) Condition: Stable Pt referred to PMD for follow-up: Yes (Follow up with primary care provider) IPMP verified?: No (N/A) Additional Instructions: Resume usual medications and care at [facility]; contact Dr. Carbone tomorrow to advise how she is doing. Return to ER if any arlene rectal bleeding. At this time there is no arlene bleeding per rectum and hemocult test was negative. Allergies/Adverse Reactions: Allergies codeine Allergy (Unverified 12/21/16 09:23) naproxen [From Naprosyn] Allergy (Unverified 12/21/16 09:23) Penicillins Adverse Reaction (Verified 05/30/18 18:15) Home Medications: Ambulatory Orders Atorvastatin Calcium 40 mg PO BEDTIME 11/04/15 Calcium Carb/Vitamin D3/Vit K1 [Calcium + Vit D & K Chew Tab] 1 each PO DAILY Furosemide 20 mg PO QDAC 11/04/15 Levothyroxine Sodium 112 mcg PO QDAC 11/04/15 Metformin HCl 1,000 mg PO BID 11/04/15 Aspirin [Aspir 81] 81 mg PO DAILY tab-cap 01/11/17 Carbidopa/Levodopa [Carbidopa-Levo 25-100 Mg Odt] 2 each PO TID 04/06/17 Buspirone HCl 10 mg PO TID 05/30/18 Clonidine HCl [Catapres] 0.1 mg PO BID PRN 05/30/18 Donepezil HCl [Aricept] 10 mg PO BEDTIME 05/30/18 Escitalopram Oxalate [Lexapro] 10 mg PO DAILY 05/30/18 Famotidine [Pepcid] 20 mg PO BEDTIME 05/30/18 Risperidone [Risperdal] 0.25 mg PO BID 05/30/18 Potassium Chloride [K-Tab ER] 10 meq PO DAILYWM #30 tablet.er 06/05/18 Amlodipine Besylate [Norvasc] 5 mg PO DAILY 07/20/18 Ferrous Sulfate 325 mg PO BID 07/20/18 Losartan Potassium [Cozaar] 50 mg PO DAILY 07/20/18 Minoxidil 2.5 mg PO DAILY 07/20/18 Disposition Discussed With: Family (Educated negative for arlene bleeding per rectum and negative on lab/guiac; Dr. Carbone to be advised tomorrow as to how she is doing and NH to return her to ER if arlene blood per rectum or if dark emesis.)
[2018-07-20 15:35] VITALS: BP 126/57; TEMP 97.7; BMI 34.4
== END 2018-07-20 18:05 | disposition home or self-care (01) ==
LOC: ED 15:13
DX: D64.9 Anemia, unspecified (principal); J02.9 Acute pharyngitis, unspecified; R53.1 Weakness; R60.0 Localized edema; E11.9 Type 2 diabetes mellitus without complications; E03.9 Hypothyroidism, unspecified; E78.5 Hyperlipidemia, unspecified; I10 Essential (primary) hypertension; Z86.73 Personal history of transient ischemic attack (TIA), and cerebral infarction without residual deficits; Z79.899 Other long term (current) drug therapy
CPT/HCPCS: 36415; 80053; 81001; 82272; 83880; 87086; 87186; 87502; 87651; 99284

== ENCOUNTER 2018-07-21 12:29 | Inpatient (IN) ==
[2018-07-21 13:27] VITALS: BMI 30.2
[2018-07-21] MEDS ORDERED: NITROSTAT SL PRN (13:27)
[2018-07-21] MEDS ORDERED: VISTARIL INJ IM PRN (13:27)
[2018-07-21] MEDS ORDERED: ATROPINE SULFATE PFS IVP PRN (13:27)
[2018-07-21] MEDS ORDERED: TYLENOL PO PRN ×2 (13:27→15:07)
[2018-07-21] MEDS ORDERED: ROCEPHIN 1 GM in SODIUM CHLORIDE 50 ML IV STA (13:39)
[2018-07-21] MEDS: SODIUM CHLORIDE 1,000 ML IV SCH (13:44)
--- NOTE | 2018-07-21 14:50 | DI ---
EXAM: Chest one view HISTORY: Loose cough COMPARISON: 06/02/2018 TECHNIQUE: Single view of the chest was performed FINDINGS: Left basilar atelectasis and/or consolidation with small left pleural effusion. No visibl e pneumothorax. Heart mildly enlarged, unchanged. Mediastinal contour unchanged, noting atheroscler osis. IMPRESSION: 1. Left basilar atelectasis and/or pneumonia with small left pleural effusion. 2. Cardiomegaly.
[2018-07-21] MEDS ORDERED: CATAPRES PO PRN (15:07)
[2018-07-21] MEDS: FERROUS SULFATE PO SCH (16:42)
[2018-07-21] MEDS: GLUCOPHAGE PO SCH (16:42)
[2018-07-21] MEDS ORDERED: LEVODOPA PO SCH (21:00)
[2018-07-21] MEDS ORDERED: NON-FORMULARY MEDICATION (Losartan Potassium 50 MG) PO SCH (21:00)
[2018-07-21] MEDS ORDERED: CARBIDOPA PO SCH (21:00)
[2018-07-21] MEDS ORDERED: NON-FORMULARY MEDICATION (Atorvastatin Calcium [Atorvastatin Calcium] 40 MG) PO SCH (21:00)
[2018-07-21] MEDS ORDERED: NON-FORMULARY MEDICATION (Ferrous Sulfate [Ferrous Sulfate] 325 MG) PO SCH (21:00)
[2018-07-21] MEDS: NORVASC PO SCH (21:38)
[2018-07-21] MEDS: SINEMET 25-100 PO SCH (21:38)
[2018-07-21] MEDS: COZAAR PO SCH (21:38)
[2018-07-21] MEDS: LIPITOR PO SCH (21:38)
[2018-07-21] MEDS: BUSPAR PO SCH (21:39)
[2018-07-21] MEDS: ARICEPT PO SCH (21:39)
[2018-07-21] MEDS: PEPCID PO SCH (21:39)
[2018-07-21] MEDS: RISPERDAL PO SCH (21:39)
[2018-07-22] MEDS: LASIX TAB PO SCH (06:00)
[2018-07-22] MEDS: FERROUS SULFATE PO SCH ×2 (06:01→16:23)
[2018-07-22] MEDS: SYNTHROID PO SCH (06:01)
[2018-07-22] MEDS ORDERED: LEVOTHYROXINE SODIUM 100 MCG PO SCH (06:30)
[2018-07-22] MEDS ORDERED: ASPIRIN EC PO SCH (08:00)
[2018-07-22] MEDS ORDERED: NON-FORMULARY MEDICATION (Potassium Chloride [K-Tab Er] 10 MEQ) PO SCH (08:00)
[2018-07-22] MEDS: ROCEPHIN 1 GM in SODIUM CHLORIDE 50 ML IV SCH (08:38)
[2018-07-22] MEDS: COZAAR PO SCH ×2 (08:38→20:44)
[2018-07-22] MEDS: MINOXIDIL PO SCH (08:39)
[2018-07-22] MEDS: BUSPAR PO SCH ×3 (08:39→20:44)
[2018-07-22] MEDS: SINEMET 25-100 PO SCH ×3 (08:39→20:44)
[2018-07-22] MEDS: RISPERDAL PO SCH ×2 (08:39→20:44)
[2018-07-22] MEDS: CALCIUM 500 + VIT D 200 MG TABLET PO SCH (08:40)
[2018-07-22] MEDS: GLUCOPHAGE PO SCH ×2 (08:40→16:30)
[2018-07-22] MEDS: LEXAPRO PO SCH (08:40)
[2018-07-22] MEDS: MICRO-K CAP PO SCH (08:40)
[2018-07-22] MEDS: ASPIRIN EC PO SCH (08:46)
[2018-07-22] MEDS: SODIUM CHLORIDE 1,000 ML IV SCH (12:13)
[2018-07-22] MEDS: PEPCID PO SCH (20:44)
[2018-07-22] MEDS: ARICEPT PO SCH (20:45)
[2018-07-22] MEDS: LIPITOR PO SCH (20:45)
[2018-07-22] MEDS: NORVASC PO SCH (20:45)
[2018-07-22] MEDS: CALMOSEPTINE OINTMENT TP SCH (22:42)
[2018-07-23] MEDS: LASIX TAB PO SCH (05:45)
[2018-07-23] MEDS: FERROUS SULFATE PO SCH ×2 (05:45→17:05)
[2018-07-23] MEDS: SYNTHROID PO SCH (05:45)
[2018-07-23] MEDS: MINOXIDIL PO SCH (08:44)
[2018-07-23] MEDS: BUSPAR PO SCH ×3 (08:44→20:53)
[2018-07-23] MEDS: CALCIUM 500 + VIT D 200 MG TABLET PO SCH (08:44)
[2018-07-23] MEDS: ASPIRIN EC PO SCH (08:44)
[2018-07-23] MEDS: ROCEPHIN 1 GM in SODIUM CHLORIDE 50 ML IV SCH (08:44)
[2018-07-23] MEDS: COZAAR PO SCH ×2 (08:45→20:53)
[2018-07-23] MEDS: MICRO-K CAP PO SCH (08:45)
[2018-07-23] MEDS: GLUCOPHAGE PO SCH ×2 (08:45→17:05)
[2018-07-23] MEDS: RISPERDAL PO SCH ×2 (08:45→20:52)
[2018-07-23] MEDS: LEXAPRO PO SCH (08:45)
[2018-07-23] MEDS: SINEMET 25-100 PO SCH ×3 (08:45→20:52)
[2018-07-23] MEDS: CALMOSEPTINE OINTMENT TP SCH ×2 (08:45→20:55)
[2018-07-23] MEDS: SODIUM CHLORIDE 1,000 ML IV SCH ×2 (08:48→14:33)
[2018-07-23] MEDS ORDERED: DECADRON 4 MG/ML SDV IVP STA (12:05)
[2018-07-23] MEDS: PROTONIX IV IVP SCH ×2 (12:24→21:05)
[2018-07-23] MEDS: LIPITOR PO SCH (20:52)
[2018-07-23] MEDS: NORVASC PO SCH (20:53)
[2018-07-23] MEDS: PEPCID PO SCH (20:53)
[2018-07-23] MEDS: ARICEPT PO SCH (20:53)
[2018-07-24] MEDS: SYNTHROID PO SCH (05:50)
[2018-07-24] MEDS: LASIX TAB PO SCH (05:50)
[2018-07-24] MEDS: FERROUS SULFATE PO SCH ×2 (05:50→17:03)
[2018-07-24] MEDS ORDERED: LASIX IVP STA (08:42)
--- NOTE | 2018-07-24 09:01 | PCM.PROG ---
Attending Provider: ATTENDING PROVIDER: Dr. CAROL CARBONE This patient is seen with Sandra Pierce, Nurse Practitioner. DATE OF SERVICE: 07/24/18 SUBJECTIVE: This 83 year old WHITE/ F was hospitalized 07/21/18. The patient is resting comfortably has had some cough after eating, speech therapy to see. Hgb slightly down today. The patient is having bouts of confusion which is normal for her. REVIEW OF SYSTEMS: CONSTITUTIONAL: No night sweats. No fatigue, malaise, lethargy. No fever or chills. HEENT: Eyes: No visual changes. No eye pain. No eye discharge. ENT: No runny nose. No epistaxis. No sinus pain. No odynophagia. No congestion. RESPIRATORY: No cough, no congestion. No hemoptysis. No shortness of breath. CARDIOVASCULAR: No angina symptoms. No CHF symptoms. No atypical chest pain for CAD. No palpitations. No orthopnea.. GASTROINTESTINAL: No abdominal pain. No nausea or vomiting. No diarrhea or constipation. No hematemesis. No hematochezia.Dysphagia. GENITOURINARY: No urgency. No frequency. No dysuria. No hematuria. No obstructive symptoms. No discharge. No pain. No significant abnormal bleeding. MUSCULOSKELETAL: No musculoskeletal pain; no joint swelling. Weakness. NEUROLOGICAL: Awake, alert, conufsed. No headache. No neck pain. No syncope. No seizures. No dizziness. PSYCHIATRIC: Not anxious. No depression. No suicidal thoughts. No homicidal thoughts. SKIN: No rash. No lesions. No wounds. ENDOCRINE: No unexplained weight loss. No weight gain. HEMATOLOGIC/LYMPHATIC: Anemia. No purpura. No petechiae. No prolonged or excessive bleeding. No palpable lymph nodes. PHYSICAL EXAMINATION: GENERAL: The patient is awake, alert and oriented, lying in bed in no distress. VITAL SIGNS: Temperature 98 F, Pulse 75, Respiratory Rate 18, BP 116/65, Pulse Ox 90% HEENT: Head normocephalic, atraumatic. Eyes: Extraocular muscles are intact. Pupils are equal, round and reactive to light and accommodation. Ears: No lesions. Nose appeared normal. Throat: No exudate or erythema. NECK: Supple. No JVD, no carotid bruit. No lymphadenopathy or thyromegaly. LUNGS: Diminished breath sounds. Clear to auscultation. Percussion note normal. Chest symmetrical. HEART: S1, S2, no S3. No murmurs. No cyanosis or clubbing. No ascites. Pulses: Dorsalis pedis and posterior tibial pulses +1 to +2 both sides. ABDOMEN: Soft. Non-tender. Bowel sounds active. No CVA tenderness. No mass felt. EXTREMITIES:+1 bilateral leg edema Full range of motion of all extremities, equal. NEUROLOGIC: No focal deficit. Cranial nerves II through XII are grossly intact. No headache, no double vision or headache. SKIN: Not dry. Intact. Turgor-normal. LYMPHATIC: No palpable lymph nodes/no lymphedema. MUSCULOSKELETAL: Normal joints with no swelling. Muscle tone is normal. LAB REVIEW: 07/24/18 05:15 07/24/18 05:15 07/24/18 05:15: Sodium 134.5, Potassium 4.12, Chloride 97.5 L, Carbon Dioxide 29.9, Anion Gap 11.22, BUN 18.1 H, Creatinine 0.67, Estimated GFR (MDRD) 84.00, BUN/Creatinine Ratio 27.01, Glucose 193.4 H, Calcium 8.09 L, Total Bilirubin 0.29, AST 20.8, ALT 10.9, Alkaline Phosphatase 52.9 L, Total Protein 5.65 L, Albumin 3.17 L, Globulin 2.48, Albumin/Globulin Ratio 1.27 07/24/18 05:15: WBC 6.03, RBC 3.01 L, Hgb 9.2 L, Hct 28.5 L, MCV 94.7 D, MCH 30.6, MCHC 32.3, RDW Coeff of Woody 14.0, Plt Count 177, Immature Gran % (Auto) 0.3, Neut % (Auto) 77.6, Lymph % (Auto) 10.0, [place] % (Auto) 11.6 H, Eos % (Auto ) 0.2, Baso % (Auto) 0.3, Immature Gran # (Auto) 0.0, Neut # (Auto) 4.7, Lymph # (Auto) 0.6, [place] # (Auto) 0.7, Eos # (Auto) 0.0, Baso # (Auto) 0.0 07/23/18 07:05: Stool Occult Blood #2 No specimen received, Stool Occult Blood # 3 No specimen received ASSESSMENT: Please see below. 1. Anemia 2. UTI, e-coli 3. Leg edema 4. Dementia, with behavioral disturbances. 5. Dysphagia PLAN: 1. Lasix 20mg IV today Plan and coordination of the patient's care discussed in the presence of Wire Threader and nurse. SCRIBED BY: SUGEY RANDALL Flotation Tank Operator scribed while in presence of service performed by Dr. Carbone/Sandra Pierce APRN on 07/24/18 ([id number])
[2018-07-24] MEDS: MINOXIDIL PO SCH (10:05)
[2018-07-24] MEDS: BUSPAR PO SCH ×3 (10:05→21:59)
[2018-07-24] MEDS: LEXAPRO PO SCH (10:06)
[2018-07-24] MEDS: COZAAR PO SCH ×2 (10:06→22:00)
[2018-07-24] MEDS: GLUCOPHAGE PO SCH ×2 (10:06→17:03)
[2018-07-24] MEDS: MICRO-K CAP PO SCH (10:07)
[2018-07-24] MEDS: CALCIUM 500 + VIT D 200 MG TABLET PO SCH (10:07)
[2018-07-24] MEDS: SINEMET 25-100 PO SCH ×3 (10:07→22:00)
[2018-07-24] MEDS: ASPIRIN EC PO SCH (10:07)
[2018-07-24] MEDS: RISPERDAL PO SCH ×2 (10:07→22:00)
[2018-07-24] MEDS: ROCEPHIN 1 GM in SODIUM CHLORIDE 50 ML IV SCH (10:08)
[2018-07-24] MEDS: CALMOSEPTINE OINTMENT TP SCH ×2 (10:08→21:58)
[2018-07-24] MEDS: PROTONIX IV IVP SCH ×2 (10:30→21:59)
--- NOTE | 2018-07-24 11:25 | PN ---
DATE OF SERVICE: 07/21/18 SUBJECTIVE: The patient was hospitalized through the office from the residential because of worsening of anemia and positive urine cultures. The patient's was in the room when I examined the patient. The patient looks pale. Skin is dry. Mucous membranes dry. She was oriented to time, place and time. She was eating. Appetite is good. The patient will undergo IV fluids, IV antibiotics, type and crossmatch two units and probably will receive two units. No evidence of active GI bleed. The patient's and the patient do not want anything heroic done. They decline EGD, colonoscopy, et cetera, procedure now and even in the future. The patient was seen and examined with Case Management. Plan was done with nurse practitioner. TIME SPENT: More than 30 minutes. Plan and coordination of the patient's care discussed in the presence of nurse. HARSHIL
--- NOTE | 2018-07-24 11:38 | PN ---
DATE OF SERVICE: 07/22/18 SUBJECTIVE: The patient was seen today and condition has improved. She is confused today. REVIEW OF SYSTEMS: CONSTITUTIONAL: No night sweats. No fatigue, malaise, lethargy. No fever or chills. HEENT: Eyes: No visual changes. No eye pain. No eye discharge. ENT: No runny nose. No epistaxis. No sinus pain. No sore throat. No odynophagia. No congestion. RESPIRATORY: No cough, no congestion. No hemoptysis. No shortness of breath. CARDIOVASCULAR: No angina symptoms. No CHF symptoms. No atypical chest pain for CAD. No palpitations. No PND. No orthopnea. GASTROINTESTINAL: No abdominal pain. No nausea or vomiting. No diarrhea or constipation. No hematemesis. No hematochezia. GENITOURINARY: No urgency. No frequency. No dysuria. No hematuria. No obstructive symptoms. No discharge. No pain. No significant abnormal bleeding. MUSCULOSKELETAL: No musculoskeletal pain; no joint swelling. NEUROLOGICAL: No headache. No neck pain. No syncope. No seizures. No dizziness. PSYCHIATRIC: Not anxious. No depression. No suicidal thoughts. No homicidal thoughts. SKIN: No rash. No lesions. No wounds. ENDOCRINE: No unexplained weight loss. No weight gain. HEMATOLOGIC/LYMPHATIC: No anemia. No purpura. No petechiae. No prolonged or excessive bleeding. No palpable lymph nodes. PHYSICAL EXAMINATION: VITAL SIGNS: Temperature 98, pulse 81, respiratory rate 20, blood pressure 122/ 57, pulse ox 92%. HEENT: Head normocephalic, atraumatic. Eyes: Extraocular muscles are intact. Pupils are equal, round and reactive to light and accommodation. Ears: No lesions. Nose appeared normal. Throat: No exudate or erythema. She looks somewhat pale. NECK: Supple. No JVD, no carotid bruit. No lymphadenopathy or thyromegaly. LUNGS: Clear to auscultation. Percussion note normal. Chest symmetrical. HEART: S1, S2, no S3. No murmurs. No cyanosis or clubbing. No ascites. Pulses: Dorsalis pedis and posterior tibial pulses +1 to +2 bilaterally. ABDOMEN: Soft. Nontender. Bowel sounds active. No CVA tenderness. No mass felt. EXTREMITIES: No pedal edema. Full range of motion of all extremities, equal. NEUROLOGIC: No focal deficit. Cranial nerves II through XII are grossly intact. No headache, no double vision or headache. SKIN: Not dry. Intact. Turgor - normal. LYMPHATIC: No palpable lymph nodes/no lymphedema. MUSCULOSKELETAL: Normal joints with no swelling. Muscle tone is normal. LABS: Hemoglobin 10.2, hematocrit 31, WBC 4000, normal differential. Creatinine 0.5, BUN 16, potassium 4.4. ASSESSMENT/PLAN: SYMPTOMATIC ANEMIA REQUIRING TWO UNITS OF PACKED RED CELLS. THE PATIENT'S HEMOGLOBIN IS DROPPING STEADILY. NO EVIDENCE OF ACTIVE GI BLEED. THE PATIENT IS CONFUSED, DEMENTED TODAY. THE FAMILY DOES NOT WANT ANY FURTHER WORKUP IN THE WAY OF EGD OR COLONOSCOPY. THE PATIENT IS BEING GIVEN ANTIBIOTICS FOR HER URINARY TRACT INFECTION. CONDITION: Stable. TIME SPENT: More than 30 minutes. Plan and coordination of the patient's care discussed in the presence of nurse. HARSHIL
--- NOTE | 2018-07-24 11:44 | RS.BEDDYS ---
Subjective Number of treatment sessions: 1 Date of Evaluation: 07/24/18 Diagnosis: Parkinson's Disease, dysphagia Current Level of Function: This 83 year old female was admitted with an infection and weakness. She has a 3 year hx of PD [facility] She currently has been showing increased s/s of dysphagia. At this time she is at risk for aspiration/penetration. Current Diet: Puree and nectar thick liquids. Current Subjective/complaints:: The patient reported difficulty with swallowing , but did not provide any specific symptoms. The stated that she is having trouble with food sticking and "spitting it out." The RN reported suctioning the patient several times d/t wet vocal quality and difficulty with emesis. At this time, the patient requires moderate verbal/visual cues to participate in conversation. She responds best to y/n questions. Medical History Comments:: PD, dysphagia Patient's Goals: To consume safest and least restrictive diet texture. General Information - General Ability to Follow Directions: Fair Oral Expression Ability: Mild Impairment Oral-Facial Assessment - Face Face Comment: Resting mandible tremor. Weakness on left side. - Dental/Labial Teeth Characteristics: Missing (Upper molars) Teeth Comment: Teeth adequate condition. Upper molars missing may impair chew. Lip Protrusion: Weak Puff Cheeks: Reduced Strength Lips Comment: Moderate-severe weakness with labial movements and coordination - Lingual Protrusion: Reduced ROM Retraction: Reduced ROM Tip Lateralization: Reduced ROM Repeated Tip Lateralization: Reduced ROM Tip Elevation: Normal Repeated Tip Elevation: Normal Comments: No visible lingual tremor. Food Presentation - Solids Food Presented: Mechanical Soft (Via finger food) Behaviors/Comments: First trial with minimal mastication. Pt required two swallows and liquid wash. Second trial, increased awareness improved mastication process. Minimal to no oral stasis. No overt s/s of aspiration. Pt reported no feeling of food stuck in throat. Liquid wash completed w/o s/s of aspiration. - Liquids Liquid Presented: Thin (Via spoon and open cup) Behaviors/Comments: Pt had no overt s/s of aspiration with liquid trials. However, SALES CORRESPONDENCE CLERK assisted all liquid trials and controlled cup drinks. Pt required hand over chin to increase labial seal and reduce labial spillage. With hand assistance on mandible, pt's swallow response improved. - Recommendations: Dysphagia Evaluation Dietary Recommendations: Dysphagia Pureed, [place]-thick liquids Comments:: Pt has moderate-severe weakness and intermittent periods of awareness which increase risk for aspiration. For pt independence and safety, puree diet with nectar thick liquids are recommended temporarily. Dysphagia Swallow Precautions/Strategies: Sitting Upright (90 deg), Double Swallow, Liquids from Cup, Alternate Liquids/Solids Comments:: The patient requires small amounts of PO trials to reduce swallow fatigue and residuals. The SALES CORRESPONDENCE CLERK recommends small meals frequently to reduce risk for aspiration/penetration. - Summary Dysphagia Evaluation Summary: The patient presents with moderate-severe oropharyngeal dysphagia. Oral motor weakness and coordination impairs coordinated swallow sequence. Severe swallow delay increases risk for aspiration on thin liquids. Alertness level is variable and impacts risk for aspiration. Pt is recommended for skilled ST to address swallow concerns and determine safest and least restrictive diet with compensatory swallow strategies. Further Therapy Indicated?: Yes Rehab Potential: Good Functional Reporting G Codes: n/a Severity Impairment Rationale: n/a Short Term Goals Problem: oral motor weakness Goal #1: pt to complete oral motor exercises over 3 trials of 10 reps Goal to be met by: 07/31/18 Problem: Swallow delay Goal #2: pt to use thermal/tactile stimulation to swallow w/i 4 secs w/ liquids. Goal to be met by: 07/31/18 Problem: Labial seal Goal #3: Pt to use comp. swallow strategies to increase swallow pressure on . Goal to be met by: 07/31/18 Problem: Pharyngeal swallow Goal #4: Pt to consume mech. soft with comp. swallow strategies on 01/11. Goal to be met by: 07/31/18 Spray Painter Goals Problem: Aspiration Goal #1: Pt to consume mech soft diet texture w/o overt s/s of asp. Problem: Fatigue Goal #2: Pt to consume 50% of meal w/o overt s/s of aspiration. Problem: Aspiration Goal #3: Pt to consume thin liquids w/o overt s/s of aspiration. Plan Duration of Treatment: 1 Week Frequency of Treatment: 2-3x/week Anticipated Discharge Destination: Nursing Home Care Facility - Treatment Code (1) Oropharyngeal dysphagia Code(s): R13.12 - DYSPHAGIA, OROPHARYNGEAL PHASE
[2018-07-24] MEDS: NORVASC PO SCH (21:59)
[2018-07-24] MEDS: ARICEPT PO SCH (22:00)
[2018-07-24] MEDS: PEPCID PO SCH (22:00)
[2018-07-24] MEDS: LIPITOR PO SCH (22:00)
[2018-07-25 05:00] VITALS: BP 142/70; TEMP 98.3
[2018-07-25] MEDS: FERROUS SULFATE PO SCH (05:48)
[2018-07-25] MEDS: LASIX TAB PO SCH (05:48)
[2018-07-25] MEDS: SYNTHROID PO SCH (05:48)
[2018-07-25] MEDS ORDERED: SYNTHROID PO STA (08:39)
--- NOTE | 2018-07-25 08:45 | PCM.PROG ---
Attending Provider: ATTENDING PROVIDER: Dr. CAROL CARBONE This patient is seen with Sandra Pierce, Nurse Practitioner. DATE OF SERVICE: 07/25/18 SUBJECTIVE: This 83 year old WHITE/ F was hospitalized 07/21/18. Speech came and saw the patient and switched her to pureed diet. Hgb is improved from yesterday to 9.8.. She has been eating well, no fever. We will discharge her back to [facility] today. REVIEW OF SYSTEMS: CONSTITUTIONAL: No night sweats. No fatigue, malaise, lethargy. No fever or chills. HEENT: Eyes: No visual changes. No eye pain. No eye discharge. ENT: No runny nose. No epistaxis. No sinus pain. No odynophagia. No congestion. RESPIRATORY: No cough, no congestion. No hemoptysis. No shortness of breath. CARDIOVASCULAR: No angina symptoms. No CHF symptoms. No atypical chest pain for CAD. No palpitations. No orthopnea.. GASTROINTESTINAL: No abdominal pain. No nausea or vomiting. No diarrhea or constipation. No hematemesis. No hematochezia. GENITOURINARY: No urgency. No frequency. No dysuria. No hematuria. No obstructive symptoms. No discharge. No pain. No significant abnormal bleeding. MUSCULOSKELETAL: No musculoskeletal pain; no joint swelling. Weakness. NEUROLOGICAL: Awake, alert,confused. No headache. No neck pain. No syncope. No seizures. No dizziness. PSYCHIATRIC: Not anxious. No depression. No suicidal thoughts. No homicidal thoughts. SKIN: No rash. No lesions. No wounds. ENDOCRINE: No unexplained weight loss. No weight gain. HEMATOLOGIC/LYMPHATIC: No anemia. No purpura. No petechiae. No prolonged or excessive bleeding. No palpable lymph nodes. PHYSICAL EXAMINATION: GENERAL: The patient is lying in bed in no distress. VITAL SIGNS: Temperature 98.3 F, Pulse 73, Respiratory Rate 12, BP 142/70, Pulse Ox 90% HEENT: Head normocephalic, atraumatic. Eyes: Extraocular muscles are intact. Pupils are equal, round and reactive to light and accommodation. Ears: No lesions. Nose appeared normal. Throat: No exudate or erythema. NECK: Supple. No JVD, no carotid bruit. No lymphadenopathy or thyromegaly. LUNGS: Diminished breath sounds. Clear to auscultation. Percussion note normal. Chest symmetrical. HEART: S1, S2, no S3. No murmurs. No cyanosis or clubbing. No ascites. Pulses: Dorsalis pedis and posterior tibial pulses +1 to +2 both sides. ABDOMEN: Soft. Non-tender. Bowel sounds active. No CVA tenderness. No mass felt. EXTREMITIES: Trace edema. Full range of motion of all extremities, equal. NEUROLOGIC: No focal deficit. Cranial nerves II through XII are grossly intact. No headache, no double vision or headache. SKIN: Not dry. Intact. Turgor-normal. LYMPHATIC: No palpable lymph nodes/no lymphedema. MUSCULOSKELETAL: Normal joints with no swelling. Muscle tone is normal. LAB REVIEW: 07/25/18 05:00 07/25/18 05:00 07/25/18 05:00: Sodium 137.5, Potassium 3.74, Chloride 98.3, Carbon Dioxide 30.8 H, Anion Gap 12.14, BUN 16.4, Creatinine 0.64, Estimated GFR (MDRD) 89.00, BUN/Creatinine Ratio 25.62, Glucose 137.0 H D, Calcium 8.17 L, Total Bilirubin 0.28, AST 15.3, ALT 7.6, Alkaline Phosphatase 55.6, Total Protein 5.99 L, Albumin 3.34 L, Globulin 2.65, Albumin/Globulin Ratio 1.26 07/25/18 05:00: WBC 4.43 L, RBC 3.18 L, Hgb 9.8 L, Hct 30.7 L, MCV 96.5, MCH 30.8, MCHC 31.9, RDW Coeff of Woody 14.1, Plt Count 185, Immature Gran % (Auto) 0.2, Neut % (Auto) 65.5, Lymph % (Auto) 21.0, [place] % (Auto) 9.7, Eos % (Auto) 3.4, Baso % (Auto) 0.2, Immature Gran # (Auto) 0.0, Neut # (Auto) 2.9, Lymph # ( Auto) 0.9, [place] # (Auto) 0.4, Eos # (Auto) 0.2, Baso # (Auto) 0.0 07/24/18 05:15: TSH 9.740 H 07/24/18 05:15: Free T4 0.69 L ASSESSMENT: Please see below. 1. Anemia, improved 2. UTI, E-coli, seems to be improving. 3. Dysphagia PLAN: 1. Discharge to [facility] 2. Increase Synthroid 125mcg daily 3. Continue Protonix 40mg twice a day 4. Increase Lasix to 40mg PO daily 5. 10meq Potassium daily 6. Macrobid 100mg for 7 days 7. CBC in one week. 8. Discontinue Pepcid Plan and coordination of the patient's care discussed in the presence of Taping Supervisor and nurse. SCRIBED BY: Mary Kate GOMEZist scribed while in presence of service performed by Dr. Carbone/Sandra Pierce APRN on 07/25/18 ([id number])
[2018-07-25] MEDS: ROCEPHIN 1 GM in SODIUM CHLORIDE 50 ML IV SCH (09:16)
[2018-07-25] MEDS: SINEMET 25-100 PO SCH (09:19)
[2018-07-25] MEDS: GLUCOPHAGE PO SCH (09:20)
[2018-07-25] MEDS: BUSPAR PO SCH (09:20)
[2018-07-25] MEDS: LEXAPRO PO SCH (09:20)
[2018-07-25] MEDS: CALCIUM 500 + VIT D 200 MG TABLET PO SCH (09:20)
[2018-07-25] MEDS: MINOXIDIL PO SCH (09:20)
[2018-07-25] MEDS: RISPERDAL PO SCH (09:20)
[2018-07-25] MEDS: MICRO-K CAP PO SCH (09:20)
[2018-07-25] MEDS: ASPIRIN EC PO SCH (09:21)
[2018-07-25] MEDS: COZAAR PO SCH (09:21)
[2018-07-25] MEDS: CALMOSEPTINE OINTMENT TP SCH (09:21)
[2018-07-25] MEDS: PROTONIX IV IVP SCH (10:50)
--- NOTE | 2018-07-25 11:02 | CM.DICTOOL ---
ADMISSION: 07/21/18 12:29 DISCHARGE: JULY 25, 2018 DATE OF SERVICE: 07/25/18 FINAL DIAGNOSIS UTI, E.COLI ORGANISM DEHYDRATION ANEMIA LEG EDEMA DYSPHAGIA COPD CAD DYSLIPIDEMIA HYPERTENSION HYPOTHYROIDISM DIABETES, TYPE 2 ANXIETY ARTHRITIS PARKINSON'S DEMENTIA (DR. VAUGHN-NEXT APPOINTMENT 04/2019) HYSTERECTOMY CHOLECYSTECTOMY, 1949s BACK SURGERY, BILATERAL KNEE ARTHROPLASTY, RIGHT EAR SURGERY (TYMPANOPLASTY???) CATARACT EXTRACTIONS RETINAL SURGERY BILATERAL CAROTID ENDARTERECTOMY, RIGHT, 06/19; LEFT, 09/19 (DR. DRAPER) FEMUR FRACTURE-REPAIR, 10/19 LAST VITALS Temp Pulse Resp BP Pulse Ox 98.3 F 73 12 142/70 H 90 L 07/25/18 04:56 07/25/18 04:56 07/25/18 04:56 07/25/18 04:56 07/25/18 04:56 TAKE THESE MEDICATIONS AT HOME Acetaminophen (Tylenol) 650 mg PO Q4H PRN PRN Reason: Headache Last Admin: 07/23/18 13:29 Dose: 650 mg Amlodipine Besylate (Norvasc) 5 mg PO BEDTIME [facility] Last Admin: 07/24/18 21:59 Dose: 5 mg Aspirin (Aspirin Ec) 81 mg PO DAILYWM [facility] Last Admin: 07/24/18 10:07 Dose: 81 mg Atorvastatin Calcium (Lipitor) 40 mg PO BEDTIME [facility] Last Admin: 07/24/18 22:00 Dose: 40 mg Buspirone HCl (Buspar) 10 mg PO TID [facility] Last Admin: 07/24/18 21:59 Dose: 10 mg Calcium/Vitamin D (Calcium 500 + Vit D 200 Mg Tablet) 1 each PO DAILY [facility] Last Admin: 07/24/18 10:07 Dose: 1 each Carbidopa/Levodopa (Sinemet 25-100) 2 tab PO TID [facility] Last Admin: 07/24/18 22:00 Dose: 2 tab Clonidine (Catapres) 0.1 mg PO BID PRN PRN Reason: Blood Pressure Donepezil HCl (Aricept) 10 mg PO BEDTIME [facility] Last Admin: 07/24/18 22:00 Dose: 10 mg Escitalopram Oxalate (Lexapro) 10 mg PO DAILY [facility] Last Admin: 07/24/18 10:06 Dose: 10 mg Ferrous Sulfate (Ferrous Sulfate) 324 mg PO BIDAC [facility] Last Admin: 07/25/18 05:48 Dose: 324 mg Furosemide (Lasix Tab) 40 mg PO QDAC [facility] Last Admin: 07/25/18 05:48 Dose: 20 mg Levothyroxine Sodium (Synthroid) 125 mcg PO QDAC [facility] Last Admin: 07/25/18 05:48 Dose: 100 mcg Losartan Potassium (Cozaar) 50 mg PO Q12HR [facility] Last Admin: 07/24/18 22:00 Dose: 50 mg Macrobid 100 mg PO BID for seven days Last Admin: first dose adm 07/25/18 pm Metformin HCl (Glucophage) 1,000 mg PO BIDWM [facility] Last Admin: 07/24/18 17:03 Dose: 1,000 mg Minoxidil (Minoxidil) 5 mg PO DAILY [facility] Last Admin: 07/24/18 10:05 Dose: 5 mg Pantoprazole Sodium (Protonix) 40 mg PO BIDAC [facility] Last Admin: Potassium Chloride (Micro-K Cap) 10 meq PO DAILYWM [facility] Last Admin: 07/24/18 10:07 Dose: 10 meq Risperidone (Risperdal) 0.25 mg PO BID [facility] Last Admin: 07/24/18 22:00 Dose: 0.25 mg ALLERGIES codeine Allergy (Unverified 12/21/16 09:23) naproxen [From Naprosyn] Allergy (Unverified 12/21/16 09:23) honey Adverse Reaction (Verified 07/23/18 16:54) Penicillins Adverse Reaction (Verified 05/30/18 18:15) DISCONTINUED MEDICATIONS PEPCID 20 MG PO BEDTIME NEW PRESCRIPTIONS: FUROSEMIDE INCREASED TO 40 MG PO DAILY SYNTHROID INCREASED TO 125 MCG PO DAILY METFORMIN DECREASED TO 1000 MG PO BID MACROBID 100 MG PO BID FOR SEVEN DAYS PROTONIX 40 MG PO BID SMOKING: NON SMOKER DISEASE SPECIFIC EDUCATION: ANEMIA UTI DEHYDRATION LAB REVIEW: 07/25/18 05:00 07/25/18 05:00 07/25/18 05:00: Sodium 137.5, Potassium 3.74, Chloride 98.3, Carbon Dioxide 30.8 H, Anion Gap 12.14, BUN 16.4, Creatinine 0.64, Estimated GFR (MDRD) 89.00, BUN/Creatinine Ratio 25.62, Glucose 137.0 H D, Calcium 8.17 L, Total Bilirubin 0.28, AST 15.3, ALT 7.6, Alkaline Phosphatase 55.6, Total Protein 5.99 L, Albumin 3.34 L, Globulin 2.65, Albumin/Globulin Ratio 1.26 07/25/18 05:00: WBC 4.43 L, RBC 3.18 L, Hgb 9.8 L, Hct 30.7 L, MCV 96.5, MCH 30.8, MCHC 31.9, RDW Coeff of Woody 14.1, Plt Count 185, Immature Gran % (Auto) 0.2, Neut % (Auto) 65.5, Lymph % (Auto) 21.0, [place] % (Auto) 9.7, Eos % (Auto) 3.4, Baso % (Auto) 0.2, Immature Gran # (Auto) 0.0, Neut # (Auto) 2.9, Lymph # ( Auto) 0.9, [place] # (Auto) 0.4, Eos # (Auto) 0.2, Baso # (Auto) 0.0 07/24/18 05:15: TSH 9.740 H 07/24/18 05:15: Free T4 0.69 L PLAN: DISCHARGE BACK TO [facility] TODAY 07/25/2018 DIET: 1800 CALORIE PUREED, NECTAR THICK LIQUIDS ACTIVITY: UP TO DINING ROOM FOR MEALS MAY PARTICIPATE IN [facility] ACTIVITY PROGRAM PHYSICAL, OCCUPATIONAL, SPEECH THERAPY EVALUATIONS ASPIRATION PRECAUTIONS VITAL SIGNS DAILY FOR ONE WEEK, THEN WEEKLY WEIGHT MONTHLY CBC IN ONE WEEK CBC, CMP EVERY 3 MONTHS LIPIDS, TSH EVERY 6 MONTHS INCONTINENT CARE NEEDED DECUBITUS PRECAUTIONS NEEDED PATIENT TO BE SEEN ON [facility] ROUNDS BY KRISTINA COUCH APRN IN 7-10 DAYS CODE STATUS: DNR ALERT, ORIENTED TO PERSON AND PLACE. MRS. BURNETT ALONG WITH HER DAUGHTER MERCEDES ARE AWARE OF DISCHARGE BACK TO [facility] AND ARE AGREEABLE WITH PLAN. MRS. BURNETT IS [place] [employer] BILATERAL HEARING AIDES. SPEECH IS DELAYED AT TIMES. SHE IS ABLE TO FEED HERSELF BUT REQUIRES ASSISTANCE WITH ALL OTHER ACTIVITIES OF DAILY LIVING. SHE IS ABLE TO TRANSFER WITH MAXIMUM ASSIST OF TWO STAFF. SHE IS INCONTINENT OF BOWEL AND BLADDER. APPETITE IS FAIR TO GOOD. SKIN TURGOR HAS IMPROVED, HYDRATION STATUS HAS IMPROVED. STAGE ONE PRESSURE ULCER TO SACRUM APPRX. 3.5 CM DIAMETER. BILATERAL HEELS ARE RED BUT BOTH ABBY. CAROL CARBONE M.D. KRISTINA COUCH APRN
--- NOTE | 2018-07-25 12:51 | HP ---
DATE OF SERVICE: 07/21/18 HISTORY OF PRESENT ILLNESS: This is an 83-year-old White female, a resident of [facility] with hemoglobin of 7.8 at [facility]. The patient has increased confusion. PAST MEDICAL HISTORY: CAD Dyslipidemia Hypertension Hypothyroidism Diabetes mellitus type 2 Anxiety Arthritis Parkinson's dementia PAST SURGICAL HISTORY: Hysterectomy Cholecystectomy, Back surgery Bilateral knee arthroplasty, Right ear surgery (tympanoplasty???) Cataract extractions Retinal surgery Bilateral carotid endarterectomy, right, 06/19, left, 09/19 () Femur fracture repair, 10/19 REVIEW OF SYSTEMS: CONSTITUTIONAL: No fever, no fatigue. HEENT: No sinus drainage, no sore throat. RESPIRATORY: No cough, no congestion. CARDIOVASCULAR: No atypical chest pain for coronary artery disease. No angina , CHF symptoms, palpitations or shortness of breath. GASTROINTESTINAL: No melena or abdominal pain. No GERD. GENITOURINARY: No hematuria, no polyuria. COMB WINDER: No blackout, no dizziness, no headache, no double vision. MUSCULOSKELETAL: No osteoarthritis pain, no joint swelling. ENDOCRINE: No weight loss, no weight gain. SKIN: Not dry, no rash. PSYCHIATRIC: Not anxious, no depression, no suicidal thoughts, no homicidal thoughts. SOCIAL HISTORY: Marital Status: Lives with . Alcohol Usage: . Tobacco Usage: . FAMILY HISTORY: MEDICATIONS: (HOME) Atorvastatin 40 mg p.o. bedtime Metformin 1000 mg p.o. t.i.d. Calcium one each p.o. daily Levothyroxine 100 mcg p.o. q.d a.c. Furosemide 20 mg p.o.q .d a.c. Aspirin 81 mg p.o. daily Carbidopa/Levodopa two each p.o. b.i.d. p.r.n. Clonidine 0.1 mg p.o. b.i.d. p.r.n. Buspirone 10 mg p.o. t.i.d. Risperidone 0.25 mg p.o. b.i.d. Famotidine 20 mg p.o. bedtime Aricept 10 mg p.o. bedtime Lexapro 10 mg p.o. daily K-Tab 10 mEq p.o. daily with meal Cozaar 50 mg p.o. q.12hr Ferrous Sulfate 325 mg p.o. b.i.d. Norvasc 5 mg p.o. bedtime Minoxidil 5 mg p.o. daily Tylenol 650 mg p.o.q.6h p.r.n. ALLERGIES: CODEINE, NAPROXEN, HONEY, PENICILLIN PHYSICAL EXAMINATION: GENERAL APPEARANCE: Oriented to person. HEENT: Normal. NECK: No JVP, no bruits. RESPIRATORY: Lungs are clear. Diminished breath sounds. CARDIOVASCULAR: S1, S2, no S3, no murmurs. No cyanosis, clubbing. No ascites. GI/ABDOMEN: No tenderness. Bowel sounds are active. EXTREMITIES: Trace leg edema, pulses +1, equal. COMB WINDER: Deep tendon reflexes, sensory, motor and gait all normal. RECTAL/PELVIC/PROSTATE: . Chest x-ray shows left basilar atelectasis and/or pneumonia with left pleural effusion. Hemoglobin 10.9 was supposedly 7.8 at the half-way. Hematocrit 33.4, platelets 197. BUN 16, creatinine 0.6, sodium 137, potassium 4.5. Urine shows gram negative rods greater than 100,000 in less than 24 hours. ASSESSMENT: 1. ANEMIA 2. ABNORMAL U/A - URINE CULTURE PENDING 3. DEMENTIA 4. PARKINSON'S PLAN: 1. Admit 2. CBC and CMP daily 3. Type and cross 2 units PRBCs 4. Routine telemetry TIME SPENT: More than 70 minutes. [facility]
--- NOTE | 2018-07-26 13:22 | PN ---
DATE OF SERVICE: 07/25/18 SUBJECTIVE: The patient was seen and examined with the nurse practitioner. The patient's condition is stable. The patient's UTI seems to be under control. Symptomatic anemia seems to be stable with hemoglobin of 9.8, hematocrit 30.7. She is going to be discharged in stable condition. TIME SPENT: More than 30 minutes. Plan and coordination of the patient's care discussed in the presence of nurse. HARSHIL
--- NOTE | 2018-07-26 13:24 | PN ---
BILLING 07/21/18 LEVEL 5 07/22/18 INTERMEDIATE 07/23/18 INTERMEDIATE 07/24/18 INTERMEDIATE 07/25/18 DISCHARGE MTDD
--- NOTE | 2018-08-03 13:58 | DS ---
DATE OF SERVICE: 07/25/18 FINAL DIAGNOSIS: UTI, E.COLI ORGANISM DEHYDRATION ANEMIA LEG EDEMA DYSPHAGIA COPD CAD DYSLIPIDEMIA HYPERTENSION HYPOTHYROIDISM DIABETES, TYPE 2 ANXIETY ARTHRITIS PARKINSON'S DEMENTIA (DR. VAUGHN-NEXT APPOINTMENT 04/2019) HYSTERECTOMY CHOLECYSTECTOMY, 1949s BACK SURGERY, BILATERAL KNEE ARTHROPLASTY, RIGHT EAR SURGERY (TYMPANOPLASTY???) CATARACT EXTRACTIONS RETINAL SURGERY BILATERAL CAROTID ENDARTERECTOMY, RIGHT, 06/19; LEFT, 09/19 (DR. DRAPER) FEMUR FRACTURE-REPAIR, 10/19 DISCHARGE INSTRUCTIONS: 1. VITAL SIGNS DAILY FOR ONE WEEK, THEN WEEKLY 2. WEIGHT MONTHLY 3. CBC IN ONE WEEK 4. CBC, CMP EVERY 3 MONTHS 5. LIPIDS, TSH EVERY 6 MONTHS 6. INCONTINENT CARE NEEDED 7. DECUBITUS PRECAUTIONS NEEDED 8. PATIENT TO BE SEEN ON [facility] BY KRISTINA COUCH APRN IN 7-10 DAYS MEDICATIONS AT DISCHARGE: Acetaminophen (Tylenol) 650 mg PO Q4H PRN PRN Reason: Headache Last Admin: 07/23/18 13:29 Dose: 650 mg Amlodipine Besylate (Norvasc) 5 mg PO BEDTIME [facility] Last Admin: 07/24/18 21:59 Dose: 5 mg Aspirin (Aspirin Ec) 81 mg PO DAILYWM [facility] Last Admin: 07/24/18 10:07 Dose: 81 mg Atorvastatin Calcium (Lipitor) 40 mg PO BEDTIME [facility] Last Admin: 07/24/18 22:00 Dose: 40 mg Buspirone HCl (Buspar) 10 mg PO TID [facility] Last Admin: 07/24/18 21:59 Dose: 10 mg Calcium/Vitamin D (Calcium 500 + Vit D 200 Mg Tablet) 1 each PO DAILY [facility] Last Admin: 07/24/18 10:07 Dose: 1 each Carbidopa/Levodopa (Sinemet 25-100) 2 tab PO TID [facility] Last Admin: 07/24/18 22:00 Dose: 2 tab Clonidine (Catapres) 0.1 mg PO BID PRN PRN Reason: Blood Pressure Donepezil HCl (Aricept) 10 mg PO BEDTIME [facility] Last Admin: 07/24/18 22:00 Dose: 10 mg Escitalopram Oxalate (Lexapro) 10 mg PO DAILY [facility] Last Admin: 07/24/18 10:06 Dose: 10 mg Ferrous Sulfate (Ferrous Sulfate) 324 mg PO BIDAC [facility] Last Admin: 07/25/18 05:48 Dose: 324 mg Furosemide (Lasix Tab) 40 mg PO QDAC [facility] Last Admin: 07/25/18 05:48 Dose: 20 mg Levothyroxine Sodium (Synthroid) 125 mcg PO QDAC [facility] Last Admin: 07/25/18 05:48 Dose: 100 mcg Losartan Potassium (Cozaar) 50 mg PO Q12HR [facility] Last Admin: 07/24/18 22:00 Dose: 50 mg Macrobid 100 mg PO BID for seven days Last Admin: first dose adm 07/25/18 pm Metformin HCl (Glucophage) 1,000 mg PO BIDWM [facility] Last Admin: 07/24/18 17:03 Dose: 1,000 mg Minoxidil (Minoxidil) 5 mg PO DAILY [facility] Last Admin: 07/24/18 10:05 Dose: 5 mg Pantoprazole Sodium (Protonix) 40 mg PO BIDAC [facility] Last Admin: Potassium Chloride (Micro-K Cap) 10 meq PO DAILYWM [facility] Last Admin: 07/24/18 10:07 Dose: 10 meq Risperidone (Risperdal) 0.25 mg PO BID [facility] Last Admin: 07/24/18 22:00 Dose: 0.25 mg NEW PRESCRIPTIONS: FUROSEMIDE INCREASED TO 40 MG PO DAILY SYNTHROID INCREASED TO 125 MCG PO DAILY METFORMIN DECREASED TO 1000 MG PO BID MACROBID 100 MG PO BID FOR SEVEN DAYS PROTONIX 40 MG PO BID DISCONTINUED MEDICATIONS: PEPCID 20 MG PO BEDTIME DIET INSTRUCTIONS: 1800 CALORIE, PUREED, NECTAR THICK LIQUIDS ASPIRATION PRECAUTIONS ACTIVITY: UP TO DINING ROOM FOR MEALS, MAY PARTICIPATE IN [facility] ACTIVITY PROGRAM PHYSICAL, OCCUPATIONAL, SPEECH THERAPY EVALUATIONS SMOKING: N/A DISEASE SPECIFIC EDUCATION: ANEMIA UTI DEHYDRATION HOSPITAL COURSE: This is a 83-year-old white female who is a resident of [facility]. She had labs done at the rehab facility and was found to have a hemoglobin of 7.8. She was sent to the emergency room. Repeat CBC showed hemoglobin to be 10.3 but UA was abnormal. Kidney function was elevated indicating acute dehydration. She was admitted for anemia, acute dehydration, urinary tract infection which grew E. coli. She was placed on Rocephin 1 gm IV daily. Chest x-ray showed some atelectasis. She was having some problems swallowing. Speech was consulted. Her diet has been changed to pureed and honey thickened liquids. She did end up requiring one unit of packed red blood cells. Hemoglobin stable at 9.8 and has been for the past two days. Confusion has slightly improved. She does have dementia so she does have some chronic confusion but was worse due to the urinary tract infection. Kidney function has improved. She was on Normal Saline at 75 cc/hr for 48 hours. TSH was elevated so we have increased her Synthroid to 125 mcg. According to the sensitivity we will place her on Macrobid 100 mg b.i.d. for the next 7 days. We placed her on Protonix 40 mg p.o. b.i.d. Initially she was on Protonix IV twice daily. We did discontinue her Pepcid. I have increased her Lasix to 40 mg daily. She is on 10 mEq of potassium. She did have some leg edema initially. We gave her some IV Lasix and this has since resolved. She is wearing oxygen most of the time now and this is normal for her. Vital signs: Temperature 98.3, heart rate 73, respirations 12, blood pressure 140/70. She will be discharged today in stable condition. Will do a repeat CBC in one week and I will followup with her at the group home. TIME SPENT: More than 60 minutes. HARSHIL
== END 2018-07-25 13:27 | DRG 690 ==
LOC: MEDSURG B 12:29
PROVIDERS: ADMIT Internal Medicine; ATTEND Internal Medicine
DX: N39.0 Urinary tract infection, site not specified (principal); B96.20 Unspecified Escherichia coli [E. coli] as the cause of diseases classified elsewhere; D64.9 Anemia, unspecified; D11.9 Benign neoplasm of major salivary gland, unspecified; J44.9 Chronic obstructive pulmonary disease, unspecified; E03.9 Hypothyroidism, unspecified; E11.9 Type 2 diabetes mellitus without complications; M19.90 Unspecified osteoarthritis, unspecified site; I10 Essential (primary) hypertension; I25.10 Atherosclerotic heart disease of native coronary artery without angina pectoris; I25.83 Coronary atherosclerosis due to lipid rich plaque; E78.5 Hyperlipidemia, unspecified; G31.83 Neurocognitive disorder with Lewy bodies; F02.80 Dementia in other diseases classified elsewhere, unspecified severity, without behavioral disturbance, psychotic disturbance, mood disturbance, and anxiety; F41.9 Anxiety disorder, unspecified; R60.0 Localized edema; R13.10 Dysphagia, unspecified
CPT/HCPCS: 36415; 80053; 82272; 82962; 84439; 84443; 85025; 86850; 86900; 87081; 93005; 93010